=== PATIENT | female | born 1940 | race Caucasian/White ===

== ENCOUNTER 2016-12-24 17:34 | Inpatient (IN) | payer MEDICARE, OTHER ==
[~2016-12-24] VITALS: Ht 162.6 cm; Wt 124.7 kg
[2016-12-24 21:45] VITALS: BP 131/58
--- NOTE | 2016-12-24 22:00 | NUR ---
At around 2145, 76y/o female arrived accompanied by 2 political consultant via [facility]. No acute distress noted. Breathing even and unlabored with normal respirations. On O2 2L via nasal cannula. No complaints of pain/discomfort. Skin is intact. Vital signs stable, BP 131/58, HR 65, RR 20 Temp. 97.6, O2 sat 98%. Call light within reach. Kept clean, dry and comfortable. All needs attended. Will continue to monitor.
[2016-12-24] MEDS ORDERED: PRAM2.7P2 SQ (23:40)
[2016-12-24] MEDS ORDERED: ARIP10TA17 PO (23:40)
[2016-12-24] MEDS ORDERED: OMEP20TA5 PO (23:40)
[2016-12-24] MEDS ORDERED: POTA10CA43 PO (23:40)
[2016-12-24] MEDS ORDERED: SERT50TA PO (23:40)
[2016-12-24] MEDS ORDERED: CLOP75TA15 PO (23:40)
[2016-12-24] MEDS ORDERED: INSU100V28 SQ (23:40)
[2016-12-24] MEDS ORDERED: EMPA1TAB PO (23:40)
[2016-12-24] MEDS ORDERED: DORZ10DR8 OP (23:40)
[2016-12-24] MEDS ORDERED: BUME1TAB4 PO (23:40)
[2016-12-24] MEDS ORDERED: METO-306 PO (23:40)
[2016-12-24] MEDS ORDERED: BLOO-668 IN (23:40)
[2016-12-24] MEDS ORDERED: BRIM5DRO3 OP (23:40)
[2016-12-24] MEDS ORDERED: FLUT16SP NS (23:40)
[2016-12-24] MEDS ORDERED: ATOR40TA PO (23:40)
[2016-12-24] MEDS ORDERED: ACET-73 PO (23:40)
[2016-12-24] MEDS ORDERED: ISOS60TA4 PO (23:40)
[2016-12-25] MEDS ORDERED: Z GUARD REMEDY PASTE 57 GM TUBE TOP PRN
[2016-12-25] MEDS ORDERED: BRIMONIDINE-P 0.1% OPHTH DROP 5 ML DROPS OP SCH (03:00)
[2016-12-25] MEDS ORDERED: DORZOLAMIDE 2% OPHT DROP 10 ML BOTTLE OP SCH (03:00)
[2016-12-25] MEDS ORDERED: Medication Not On Formulary EA (Omeprazole 20 MG) PO SCH (03:00)
--- NOTE | 2016-12-25 03:00 | NUR ---
Patient asleep. Med recon done. No complaints of pain. No SOB. Call light within reach. All needs attended. Will continue to monitor.
[2016-12-25 06:23] LABS: BASOPHILS # (AUTO) 0.1 K/uL (0.0-8.0); BASOPHILS % (AUTO) 0.7 % (0.0-2.0); EOSINOPHILS # (AUTO) 0.4 K/uL (0.0-0.7); EOSINOPHILS % (AUTO) 3.9 % (0.0-7.0); HEMATOCRIT 37.9 % (37-47); HEMOGLOBIN 12.1 G/DL (12.0-16.0); LYMPHOCYTES # (AUTO) 1.5 K/UL (0.8-4.8); LYMPHOCYTES % (AUTO) 13.6 % (20.5-51.5); MEAN CORPUSCULAR HEMOGLOBIN 26.8 UUG (27.0-31.0); MEAN CORPUSCULAR HGB CONC 32 g/dL (32.0-37.0); MEAN CORPUSCULAR VOLUME 83.7 FL (81.0-99.0); MONOCYTES # (AUTO) 0.5 K/UL (0.1-1.30); MONOCYTES % (AUTO) 4.4 % (0.0-11.0); NEUTROPHILS # (AUTO) 8.7 K/UL (1.8-8.9); NEUTROPHILS % (AUTO) 77.4 % (38.5-71.5); PLATELET COUNT (AUTO) 343 K/UL (150-450); RED BLOOD CELL COUNT(AUTO) 4.53 MIL/UL (4.2-5.4); WHITE BLOOD COUNT (AUTO) 11.2 K/UL (4.0-11.2)
[2016-12-25] MEDS: BLOOD SUGAR DIAGNOSTIC 1 EACH STRIP VI SCH ×3 (06:31→21:29)
--- NOTE | 2016-12-25 06:46 | NUR ---
patient slept well throughout the shift. No acute distress noted. DVT pumps on. No SOB. MRSA swab done. Denies pain. Kept clean, dry and comfortable. Call light within reach. All needs attended.
[2016-12-25 07:06] LABS: CARBON DIOXIDE 37 mmol/L (21-32); CHLORIDE 99 mmol/L (98-107); CHOLESTEROL 187 mg/dL (<200); CREATININE 1.4 mg/dL (0.6-1.3); GLUCOSE 214 mg/dL (74-106); HDL CHOLESTEROL 40 mg/dL (40-60); MAGNESIUM 1.5 mg/dL (1.8-2.4); PHOSPHOROUS 3.4 mg/dL (2.5-4.9); POTASSIUM 4.6 mmol/L (3.5-5.1); TRIGLYCERIDES 329 MG/DL (30-150); UREA NITROGEN, BLOOD 39 mg/dL (7-18)
[2016-12-25 08:52] VITALS: BP 149/48
[2016-12-25] MEDS ORDERED: POTASSIUM CHLORIDE 10 MEQ CAPSULE.SA PO SCH (09:00)
[2016-12-25] MEDS ORDERED: LINAGLIPTIN PO SCH (09:00)
[2016-12-25] MEDS ORDERED: [UNRECOGNIZED DRUG - OTHER] PO SCH (09:00)
[2016-12-25] MEDS ORDERED: EMPAGLIFLOZIN PO SCH (09:00)
[2016-12-25] MEDS: METOPROLOL SUCCINATE XL 50 MG TAB.SR.24H PO SCH (09:00)
[2016-12-25] MEDS ORDERED: METOPROLOL SUCCINATE XL 100 MG TAB.SR.24H PO SCH (09:00)
[2016-12-25] MEDS: BUMETANIDE 1 MG TABLET PO SCH ×2 (09:00→10:33)
[2016-12-25] MEDS: PANTOPRAZOLE SODIUM 40 MG TABLET.DR PO SCH ×2 (10:33→17:12)
[2016-12-25] MEDS: ATORVASTATIN 40 MG TABLET PO SCH ×2 (10:33→21:30)
[2016-12-25] MEDS: FLUTICASONE PROP NASAL SPRAY 16 GM BOTTLE NS SCH (10:34)
[2016-12-25] MEDS: SERTRALINE HCL 50 MG TABLET PO SCH (10:36)
[2016-12-25] MEDS: ISOSORBIDE MONONITRATE 60 MG TAB.SR.24H PO SCH (10:36)
[2016-12-25] MEDS: POTASSIUM CHLORIDE 20 MEQ TAB.PRT.SR PO SCH (10:36)
[2016-12-25] MEDS: CLOPIDOGREL 75 MG TABLET PO SCH (10:36)
[2016-12-25] MEDS: INSULIN REGULAR, HUMAN 300 UNIT/3 ML VIAL SQ SCH ×2 (10:53→12:00)
[2016-12-25] MEDS: ARIPIPRAZOLE 10 MG TABLET PO SCH (12:18)
[2016-12-25] MEDS ORDERED: MAGNESIUM OXIDE 400 MG TABLET PO ONE (13:15)
--- NOTE | 2016-12-25 13:15 | NUR ---
DR. Montes was here on the unit and was niotified pt was NOT given coverage this am for the #189 IGlucose from shift superintendent. The pt was given her scheduled Insulin 20 units of Humulin at 11 am. Pt POCT Glucose was taken and it was 440 (monorail charger operator ) assisted. Pt was told not to eat: when RN went in to take Glucose, pt was done eating. Glucose was #443. Dr Montes was on the unit and wa notified; he reports to hold the schedules 20 units since 20 units was just given at 11 am. to re check at 1700 and give the scheduled 20 units and adhere to the sliding scale. egyptologist was discussing with the md: and will input the orders. Pt is not symptomatic. will continue to observe pt. Observation.
[2016-12-25] MEDS ORDERED: [UNRECOGNIZED DRUG - OTHER] SQ SCH (17:00)
[2016-12-25] MEDS ORDERED: DEXTROSE 50% 50 ML DISP.SYRIN IV PRN ×4 (17:00→17:45)
[2016-12-25] MEDS: BRIMONIDINE 0.2% OPHT DROP 10 ML BOTTLE EACHEYE SCH ×2 (17:10→17:17)
[2016-12-25] MEDS: DORZOLAMIDE 2% OPHT DROP 10 ML BOTTLE EACHEYE SCH (17:11)
[2016-12-25] MEDS: [UNRECOGNIZED DRUG - REMARK] SQ PRN (17:51)
[2016-12-25] MEDS: AZITHROMYCIN 250 MG TABLET PO SCH (18:56)
--- NOTE | 2016-12-25 19:50 | NUR ---
PT RECEIVED IN BED, AWAKE. A/OX4. ABLE TO MAKE NEEDS KNOWN. V/S STABLE. IN NO ACUTE DISTRESS. NO C/O PAIN AT THIS TIME. AWAITING IV START. ROCEPHIN HELD AT THIS TIME. PT ON 2LNC. NO C/O SOB. O2SAT 97%. SAFETY MEASURES IMPLEMENTED. BED ALARM SET. CALL LIGHT WITHIN REACH.
[2016-12-25 20:12] VITALS: BP 139/65
[2016-12-25] MEDS ORDERED: BLOOD SUGAR DIAGNOSTIC 1 EACH STRIP VI SCH ×2 (21:00)
[2016-12-25] MEDS: CEFTRIAXONE 1 G in IV DEXTROSE 5% 50 ML IV SCH (21:30)
[2016-12-25] MEDS: LOSARTAN POTASSIUM 50 MG TABLET PO SCH (21:30)
[2016-12-25] MEDS: INSULIN DETEMIR 300 UNIT/3 ML CARTRIDGE SQ SCH (21:34)
[2016-12-25] MEDS: [UNRECOGNIZED DRUG - REMARK] SQ PRN (21:37)
--- NOTE | 2016-12-26 06:10 | NUR ---
END OF SHIFT NOTES. PT SLEPT WELL THROUGHOUT SHIFT. IV ABX INFUSED. IV HEP-LOCKED, INTACT AND PATENT. ALL NEEDS ATTENDED. SAFETY MAINTAINED. CALL LIGHT WITHIN REACH.
[2016-12-26] MEDS: PANTOPRAZOLE SODIUM 40 MG TABLET.DR PO SCH ×2 (06:33→17:39)
[2016-12-26] MEDS: BLOOD SUGAR DIAGNOSTIC 1 EACH STRIP VI SCH ×4 (06:36→20:06)
[2016-12-26 06:49] LABS: CARBON DIOXIDE 39 mmol/L (21-32); CHLORIDE 98 mmol/L (98-107); CREATININE 1.3 mg/dL (0.6-1.3); POTASSIUM 4.2 mmol/L (3.5-5.1); UREA NITROGEN, BLOOD 34 mg/dL (7-18)
[2016-12-26 07:07] LABS: GLUCOSE 321 mg/dL (74-106)
[2016-12-26 07:20] VITALS: BP 163/81
--- NOTE | 2016-12-26 08:00 | NUR ---
PT RECEIVED IN BED, AWAKE. A/OX4. ABLE TO MAKE NEEDS KNOWN. V/S STABLE. IN NO ACUTE DISTRESS. NO C/O PAIN AT THIS TIME. PT ON 2LNC. NO C/O SOB. O2SAT 95%. SAFETY MEASURES IMPLEMENTED. BED ALARM SET. CALL LIGHT WITHIN REACH.
[2016-12-26] MEDS ORDERED: FUROSEMIDE 80 MG TABLET PO SCH ×2 (09:00→21:00)
[2016-12-26] MEDS: DORZOLAMIDE 2% OPHT DROP 10 ML BOTTLE EACHEYE SCH ×2 (09:14→17:40)
[2016-12-26] MEDS: BRIMONIDINE 0.2% OPHT DROP 10 ML BOTTLE EACHEYE SCH ×2 (09:14→17:40)
[2016-12-26] MEDS: FLUTICASONE PROP NASAL SPRAY 16 GM BOTTLE NS SCH (09:15)
[2016-12-26] MEDS: ARIPIPRAZOLE 10 MG TABLET PO SCH (09:15)
[2016-12-26] MEDS: ISOSORBIDE MONONITRATE 60 MG TAB.SR.24H PO SCH (09:17)
[2016-12-26] MEDS: POTASSIUM CHLORIDE 20 MEQ TAB.PRT.SR PO SCH (09:17)
[2016-12-26] MEDS: SERTRALINE HCL 50 MG TABLET PO SCH (09:18)
[2016-12-26] MEDS: CLOPIDOGREL 75 MG TABLET PO SCH (09:18)
[2016-12-26] MEDS: LOSARTAN POTASSIUM 50 MG TABLET PO SCH ×2 (09:20→21:21)
[2016-12-26] MEDS: METOPROLOL SUCCINATE XL 50 MG TAB.SR.24H PO SCH (09:21)
[2016-12-26] MEDS: INSULIN DETEMIR 300 UNIT/3 ML CARTRIDGE SQ SCH ×2 (09:24→21:16)
[2016-12-26] MEDS: [UNRECOGNIZED DRUG - REMARK] SQ PRN ×2 (13:00→17:46)
--- NOTE | 2016-12-26 13:00 | NUR ---
BLD GLU 441 AND REPEAT DONE PER PROTOCOL WITH BLD GLU WAS 408. 20UNIT OF HUMALOG GIVEN SUB/Q PER MD ORDER. DR GENE COOLEY CALLED AT TELE# [phone]. AND MESSAGE LEFT. WILL CONT TO MONITOR AT THIS TIME AND NO S/S OF ANY ADVERSE REACTION NOTED.
[2016-12-26] MEDS ORDERED: ACETAMINOPHEN 325 MG TABLET PO PRN (13:15)
[2016-12-26] MEDS: CEFTRIAXONE 1 G in IV DEXTROSE 5% 50 ML IV SCH (17:39)
[2016-12-26] MEDS: AZITHROMYCIN 250 MG TABLET PO SCH (17:39)
[2016-12-26] MEDS: INSULIN LISPRO 1000 UNITS/10 ML VIAL(HUMALOG) SQ SCH (17:48)
--- NOTE | 2016-12-26 18:00 | NUR ---
stable no s/s of any acute distress noted at this time.
--- NOTE | 2016-12-26 19:30 | NUR ---
PT ALERT AND ORIENTED IN BED. NO DISTRESS NOTED. IV INTACT. O2 2L NC IN PLACE. O2 SAT WNL. BS 241. INSULIN COVERAGE WILL BE GIVEN ORDERED. COMPLAINT WITH NURSING CARE. SAFETY MAINTAINED. CALL LIGHT WITHIN REACH. WILL CONTINUE TO MONITOR. Addendum: 12/27/16 at 0121 by CLEVELAND SAMUELS RN PT COMPLIANT WITH NURSING CARE.
[2016-12-26 20:00] VITALS: BP 157/74
[2016-12-26] MEDS ORDERED: INSULIN NPH SQ SCH (21:00)
[2016-12-26] MEDS ORDERED: INSULIN NPH 1,000 UNITS/10 ML VIAL SQ SCH (21:00)
[2016-12-26 21:05] VITALS: BP 136/46
[2016-12-26] MEDS: ATORVASTATIN 40 MG TABLET PO SCH (21:11)
[2016-12-26] MEDS: FUROSEMIDE 40 MG TABLET PO SCH (21:11)
[2016-12-26] MEDS: [UNRECOGNIZED DRUG - REMARK] SQ PRN (21:19)
--- NOTE | 2016-12-26 21:40 | NUR ---
DISCUSSED PATIENT DIABETIC INSULIN REGIME WITH DR LENORA MILLS. NOTIFIED HIM OF HS ACCUCHECK OF 241 TONIGHT. ALSO AWARE THAT PATIENT RECEIVED 50 UNITS OF LEVIMIR, 30 UNITS OF NPH, AND 4 UNITS OF HUMALOG BASED ON THIS ACCUCHECK ORDERED. DR STATED HE KNOWS IT SEEMS LIKE A LOT OF INSULIN COVERAGE, BUT AT HOME, PATIENT RECEIVES ABOUT 400 UNITS TOTAL OF INSULIN COVERAGE BETWEEN 4 MEDICINES SHE IS RECEIVING AND HAS NOT EXPERIENCED ANY HYPOGLYCEMIC EPISODES. HE ALSO ORDERED THAT WE DO NOT DO THE MIDNIGHT ACCUCHECKS PREVIOUSLY ORDERED. ORDER RECEIVED. WILL OBSERVE PATIENT CLOSELY FOR ANY SIGNS OF HYPOGLYCEMIA. HOURLY ROUNDS ARE BEING DONE. CALL LIGHT WITHIN REACH AAT. AND BED ALARM ON
--- NOTE | 2016-12-27 01:22 | NUR ---
PT FEELING SHAKEY AND DIZZY, STATES "SHE FEELS HER SUGAR IS LOW" CHECKED BS 79. GAVE ORANGE JUICE AND A SNACK. EXPLAINED THE SYMPTOMS OF HYPOGLYCEMIA AND IF SHE EXPERIENCES ANY TO CONTACT THE NURSING STAFF IMMEDIATELY. PT VERBALIZED UNDERSTANDING. WILL CONTINUE TO MONITOR.
[2016-12-27] MEDS: PANTOPRAZOLE SODIUM 40 MG TABLET.DR PO SCH ×2 (06:23→17:43)
[2016-12-27] MEDS: BLOOD SUGAR DIAGNOSTIC 1 EACH STRIP VI SCH ×4 (06:30→21:20)
--- NOTE | 2016-12-27 06:58 | NUR ---
PT RESTING IN BED. NO DISTRESS NOTED. BS 180. IV INTACT AND PATENT. O2 2L NC IN PLACE. SAFETY MAINTAINED. CALL LIGHT WITHIN REACH.
[2016-12-27 07:15] VITALS: BP 135/64
[2016-12-27] MEDS: ARIPIPRAZOLE 10 MG TABLET PO SCH (09:46)
[2016-12-27] MEDS: FLUTICASONE PROP NASAL SPRAY 16 GM BOTTLE NS SCH (09:46)
[2016-12-27] MEDS: DORZOLAMIDE 2% OPHT DROP 10 ML BOTTLE EACHEYE SCH ×2 (09:46→17:43)
[2016-12-27] MEDS: BRIMONIDINE 0.2% OPHT DROP 10 ML BOTTLE EACHEYE SCH ×2 (09:46→17:43)
[2016-12-27] MEDS: METOPROLOL SUCCINATE XL 50 MG TAB.SR.24H PO SCH (09:47)
[2016-12-27] MEDS: SERTRALINE HCL 50 MG TABLET PO SCH (09:47)
[2016-12-27] MEDS: FUROSEMIDE 40 MG TABLET PO SCH ×2 (09:47→21:22)
[2016-12-27] MEDS: ISOSORBIDE MONONITRATE 60 MG TAB.SR.24H PO SCH (09:47)
[2016-12-27] MEDS: AMLODIPINE 5 MG TABLET PO SCH (09:48)
[2016-12-27] MEDS: LOSARTAN POTASSIUM 50 MG TABLET PO SCH ×2 (09:48→21:22)
[2016-12-27] MEDS: POTASSIUM CHLORIDE 20 MEQ TAB.PRT.SR PO SCH (09:48)
[2016-12-27] MEDS: CLOPIDOGREL 75 MG TABLET PO SCH (09:48)
[2016-12-27] MEDS: INSULIN DETEMIR 300 UNIT/3 ML CARTRIDGE SQ SCH ×2 (09:59→21:59)
[2016-12-27] MEDS: INSULIN LISPRO 1000 UNITS/10 ML VIAL(HUMALOG) SQ SCH ×3 (10:00→18:30)
[2016-12-27] MEDS: [UNRECOGNIZED DRUG - REMARK] SQ PRN (11:53)
--- NOTE | 2016-12-27 14:00 | NUR ---
Called and left a message to pt's daughter regarding pt's diabetic home medication.
--- NOTE | 2016-12-27 17:19 | NUR ---
Spoke with Dr. Cedeño on the telephone. Full report given. New orders received and carried out.
--- NOTE | 2016-12-27 18:59 | NUR ---
Javon chávez for [address] BS 154. Dr[address] Cedeño called to clarify insulin orders. Awaiting return call.
--- NOTE | 2016-12-27 19:45 | NUR ---
DR MILLS CALLED BACK AT 1945,[facility] NURSE ENDORSED TO FOLLOW UP CONCERNING AFTER MEALS INSULIN 20 UNITS HUMALOG. BS [address] MILLS WOULD LIKE 20 UNITS OF HUMALOG GIVEN IF PT EATS MEAL. IF PT DOES NOT EAT MEAL HOLD DOSE. NOTIFIED PT ATE DINNER, OK WITH NOT GIVING 20 UNITS OF HUMALOG AT THIS TIME. SPOKE WITH DR WILL CHECK BS AT 2100 AND FOLLOW UP WITH 2100 ORDERS.
[2016-12-27 20:15] VITALS: BP 134/49
[2016-12-27] MEDS: ATORVASTATIN 40 MG TABLET PO SCH (21:22)
--- NOTE | 2016-12-27 21:45 | NUR ---
PT COMPLIANT WITH LONG ACTING INSULINS BUT REFUSING SHORT ACTING AT THIS TIME. EDUCATED PT ON THE DIFFERENCE BETWEEN LONG ACTING AND SHORT ACTING INSULIN AND THE SYMPTOMS OF HYPERGLYCEMIA AND HYPOGLYCEMIA. PT VERBALIZED UNDERSTANDING. WILL CONTINUE TO MONITOR.
[2016-12-27] MEDS: INSULIN NPH 1,000 UNITS/10 ML VIAL SQ SCH (21:57)
[2016-12-27] MEDS: INSULIN LISPRO 1000 UNITS/10 ML VIAL(HUMALOG) SQ PRN (22:00)
[2016-12-28] MEDS: PANTOPRAZOLE SODIUM 40 MG TABLET.DR PO SCH ×2 (06:13→17:03)
[2016-12-28] MEDS: BLOOD SUGAR DIAGNOSTIC 1 EACH STRIP VI SCH ×4 (07:01→20:18)
--- NOTE | 2016-12-28 07:05 | NUR ---
PT RESTING IN BED. NO DISTRESS NOTED. BS 202. O2 2L NC IN PLACE, O2 SAT WNL. IV INTACT. CLEAN AND DRY. SLEPT WELL THROUGHOUT THE NIGHT. SAFETY MAINTAINED. CALL LIGHT WITHIN REACH.
[2016-12-28 07:30] VITALS: BP 133/73
[2016-12-28] MEDS: FLUTICASONE PROP NASAL SPRAY 16 GM BOTTLE NS SCH (08:10)
[2016-12-28] MEDS: FUROSEMIDE 40 MG TABLET PO SCH ×2 (08:11→20:32)
[2016-12-28] MEDS: SERTRALINE HCL 50 MG TABLET PO SCH (08:11)
[2016-12-28] MEDS: CLOPIDOGREL 75 MG TABLET PO SCH (08:11)
[2016-12-28] MEDS: POTASSIUM CHLORIDE 20 MEQ TAB.PRT.SR PO SCH (08:11)
[2016-12-28] MEDS: ARIPIPRAZOLE 10 MG TABLET PO SCH (08:12)
[2016-12-28] MEDS: LOSARTAN POTASSIUM 50 MG TABLET PO SCH ×2 (08:12→20:32)
[2016-12-28] MEDS: METOPROLOL SUCCINATE XL 50 MG TAB.SR.24H PO SCH (08:13)
[2016-12-28] MEDS: AMLODIPINE 5 MG TABLET PO SCH (08:13)
[2016-12-28] MEDS: DORZOLAMIDE 2% OPHT DROP 10 ML BOTTLE EACHEYE SCH ×2 (08:13→17:03)
[2016-12-28] MEDS: BRIMONIDINE 0.2% OPHT DROP 10 ML BOTTLE EACHEYE SCH ×2 (08:14→17:03)
[2016-12-28] MEDS: ISOSORBIDE MONONITRATE 60 MG TAB.SR.24H PO SCH (08:19)
[2016-12-28] MEDS: INSULIN DETEMIR 300 UNIT/3 ML CARTRIDGE SQ SCH ×2 (08:26→20:35)
[2016-12-28] MEDS: INSULIN LISPRO 1000 UNITS/10 ML VIAL(HUMALOG) SQ SCH (08:27)
[2016-12-28] MEDS: INSULIN LISPRO 1000 UNITS/10 ML VIAL(HUMALOG) SQ PRN ×3 (08:28→16:54)
[2016-12-28 20:01] VITALS: BP 122/45
[2016-12-28] MEDS: ATORVASTATIN 40 MG TABLET PO SCH (20:32)
[2016-12-28] MEDS: ACETAMINOPHEN ES 500 MG TABLET PO PRN (20:33)
[2016-12-28] MEDS: INSULIN NPH 1,000 UNITS/10 ML VIAL SQ SCH (20:37)
--- NOTE | 2016-12-28 22:00 | NUR ---
Assisted to the bathroom PRN, patient tolerated w/o difficulty. Night snacks provided.
--- NOTE | 2016-12-29 06:00 | NUR ---
Slept well today, current blood sugar 210 mg/dl. No acute resp. distress.
[2016-12-29] MEDS: PANTOPRAZOLE SODIUM 40 MG TABLET.DR PO SCH ×2 (06:33→17:38)
[2016-12-29] MEDS: BLOOD SUGAR DIAGNOSTIC 1 EACH STRIP VI SCH ×4 (06:33→21:42)
--- NOTE | 2016-12-29 07:45 | NUR ---
Pt. A/A/O,eating breakfast,no s/s of distress,denies pain.
[2016-12-29 08:00] VITALS: BP 152/59
[2016-12-29] MEDS: ISOSORBIDE MONONITRATE 60 MG TAB.SR.24H PO SCH (09:24)
[2016-12-29] MEDS: POTASSIUM CHLORIDE 20 MEQ TAB.PRT.SR PO SCH (09:24)
[2016-12-29] MEDS: FUROSEMIDE 40 MG TABLET PO SCH ×2 (09:24→21:41)
[2016-12-29] MEDS: LOSARTAN POTASSIUM 50 MG TABLET PO SCH ×2 (09:24→21:00)
[2016-12-29] MEDS: SERTRALINE HCL 50 MG TABLET PO SCH (09:25)
[2016-12-29] MEDS: CLOPIDOGREL 75 MG TABLET PO SCH (09:25)
[2016-12-29] MEDS: AMLODIPINE 5 MG TABLET PO SCH (09:25)
[2016-12-29] MEDS: DORZOLAMIDE 2% OPHT DROP 10 ML BOTTLE EACHEYE SCH ×2 (09:28→17:37)
[2016-12-29] MEDS: INSULIN DETEMIR 300 UNIT/3 ML CARTRIDGE SQ SCH ×2 (09:28→21:59)
[2016-12-29] MEDS: BRIMONIDINE 0.2% OPHT DROP 10 ML BOTTLE EACHEYE SCH ×2 (09:29→17:38)
[2016-12-29] MEDS: INSULIN LISPRO 1000 UNITS/10 ML VIAL(HUMALOG) SQ SCH (09:30)
[2016-12-29] MEDS: METOPROLOL SUCCINATE XL 50 MG TAB.SR.24H PO SCH (09:31)
[2016-12-29] MEDS: FLUTICASONE PROP NASAL SPRAY 16 GM BOTTLE NS SCH (09:31)
[2016-12-29] MEDS: ARIPIPRAZOLE 10 MG TABLET PO SCH (09:31)
[2016-12-29] MEDS: INSULIN LISPRO 1000 UNITS/10 ML VIAL(HUMALOG) SQ PRN ×2 (12:15→22:01)
--- NOTE | 2016-12-29 14:40 | NUR ---
Rehab Team Conference 12/29/16
--- NOTE | 2016-12-29 18:00 | NUR ---
Pt.eating dinner,good appetite,watching TV,denies pain @ time.family at bedside.
[2016-12-29 20:00] VITALS: BP 98/43
[2016-12-29] MEDS: ATORVASTATIN 40 MG TABLET PO SCH (21:41)
[2016-12-29] MEDS: INSULIN NPH 1,000 UNITS/10 ML VIAL SQ SCH (22:00)
[2016-12-30] MEDS: PANTOPRAZOLE SODIUM 40 MG TABLET.DR PO SCH ×2 (07:04→17:01)
[2016-12-30] MEDS: BLOOD SUGAR DIAGNOSTIC 1 EACH STRIP VI SCH ×4 (07:08→20:43)
[2016-12-30 08:38] VITALS: BP 120/91
[2016-12-30] MEDS: INSULIN LISPRO 1000 UNITS/10 ML VIAL(HUMALOG) SQ SCH (08:39)
[2016-12-30] MEDS: DORZOLAMIDE 2% OPHT DROP 10 ML BOTTLE EACHEYE SCH ×2 (08:40→17:10)
[2016-12-30] MEDS: FLUTICASONE PROP NASAL SPRAY 16 GM BOTTLE NS SCH (08:41)
[2016-12-30] MEDS: ARIPIPRAZOLE 10 MG TABLET PO SCH (08:43)
[2016-12-30] MEDS: ISOSORBIDE MONONITRATE 60 MG TAB.SR.24H PO SCH (08:47)
[2016-12-30] MEDS: LOSARTAN POTASSIUM 50 MG TABLET PO SCH ×2 (08:47→20:37)
[2016-12-30] MEDS: POTASSIUM CHLORIDE 20 MEQ TAB.PRT.SR PO SCH (08:48)
[2016-12-30] MEDS: SERTRALINE HCL 50 MG TABLET PO SCH (08:48)
[2016-12-30] MEDS: FUROSEMIDE 40 MG TABLET PO SCH ×2 (08:48→20:37)
[2016-12-30] MEDS: CLOPIDOGREL 75 MG TABLET PO SCH (08:49)
[2016-12-30] MEDS: METOPROLOL SUCCINATE XL 50 MG TAB.SR.24H PO SCH (08:49)
[2016-12-30] MEDS: AMLODIPINE 5 MG TABLET PO SCH (08:50)
[2016-12-30] MEDS: BRIMONIDINE 0.2% OPHT DROP 10 ML BOTTLE EACHEYE SCH ×2 (08:52→17:07)
[2016-12-30] MEDS: INSULIN DETEMIR 300 UNIT/3 ML CARTRIDGE SQ SCH ×2 (08:54→20:58)
[2016-12-30] MEDS: INSULIN LISPRO 1000 UNITS/10 ML VIAL(HUMALOG) SQ PRN ×3 (12:27→20:52)
--- NOTE | 2016-12-30 19:00 | NUR ---
RECEIVED PATIENT IN BED, ALERT ORIENTED, NO S/S OF HYPO/HYPERGLYCEMIA NOTED, NO SOB NO CHEST PAIN NOTED, ON OXYGEN 2L NC PER MIN, OXYGEN SAT WNL, CONTINENT OF BOWEL AND BLADDER, ASSISTED WITH TOILETING, IV HEPLOCK ON R FA 22#, NO OTHER COMPLAIN OF PAIN, CALL LIGHT WITHIN REACH.
[2016-12-30 20:00] VITALS: BP 108/42
[2016-12-30] MEDS: ATORVASTATIN 40 MG TABLET PO SCH (20:37)
[2016-12-30] MEDS: INSULIN NPH 1,000 UNITS/10 ML VIAL SQ SCH (20:49)
[2016-12-31] MEDS: PANTOPRAZOLE SODIUM 40 MG TABLET.DR PO SCH ×2 (06:10→17:19)
[2016-12-31] MEDS: BLOOD SUGAR DIAGNOSTIC 1 EACH STRIP VI SCH ×4 (06:24→20:24)
--- NOTE | 2016-12-31 06:51 | NUR ---
PATIENT SLEPT MOST OF THE NIGHT, NO SOB NO CHEST, ON OXYGEN 2LPM FOR SOB, OXYGEN SAT WNL, ASSISTED WITH TOILETING, IV HEPLOCK ON R FA 22, INTACT. CALL LIGHT WITHIN REACH.
[2016-12-31 08:00] VITALS: BP 128/59
[2016-12-31] MEDS: ISOSORBIDE MONONITRATE 60 MG TAB.SR.24H PO SCH (09:00)
[2016-12-31] MEDS: LOSARTAN POTASSIUM 50 MG TABLET PO SCH ×2 (09:00→21:00)
[2016-12-31] MEDS: SPIRONOLACTONE 25 MG TABLET PO SCH (09:00)
[2016-12-31] MEDS: METOPROLOL SUCCINATE XL 50 MG TAB.SR.24H PO SCH (09:00)
[2016-12-31] MEDS: INSULIN DETEMIR 300 UNIT/3 ML CARTRIDGE SQ SCH ×2 (09:32→20:35)
[2016-12-31] MEDS: SERTRALINE HCL 50 MG TABLET PO SCH (09:35)
[2016-12-31] MEDS: POTASSIUM CHLORIDE 20 MEQ TAB.PRT.SR PO SCH (09:36)
[2016-12-31] MEDS: AMLODIPINE 5 MG TABLET PO SCH (09:36)
[2016-12-31] MEDS: FUROSEMIDE 40 MG TABLET PO SCH ×2 (09:36→20:19)
[2016-12-31] MEDS: ARIPIPRAZOLE 10 MG TABLET PO SCH (09:37)
[2016-12-31] MEDS: FLUTICASONE PROP NASAL SPRAY 16 GM BOTTLE NS SCH (09:38)
[2016-12-31] MEDS: BRIMONIDINE 0.2% OPHT DROP 10 ML BOTTLE EACHEYE SCH ×2 (09:38→17:19)
[2016-12-31] MEDS: DORZOLAMIDE 2% OPHT DROP 10 ML BOTTLE EACHEYE SCH ×2 (09:38→17:19)
[2016-12-31] MEDS: CLOPIDOGREL 75 MG TABLET PO SCH (09:45)
[2016-12-31] MEDS: INSULIN LISPRO 1000 UNITS/10 ML VIAL(HUMALOG) SQ SCH (13:01)
--- NOTE | 2016-12-31 16:29 | NUR ---
patient a/o times three in bed sleeping most of am without c/o pain or dis comfort, .Oral intake qs and remains on fluid restriction, abdomen large and soft no s/s of respiratory distress o2 2l nc, accu checks covered with humalog insulin as ordered. continue to monitor for respiratory distress
[2016-12-31] MEDS: INSULIN LISPRO 1000 UNITS/10 ML VIAL(HUMALOG) SQ PRN (17:56)
--- NOTE | 2016-12-31 19:26 | NUR ---
RECEIVED IN BED, ALERT ORIENTED, NO SOB NO CHEST PAIN NOTED, OXYGEN SAT WNL, CONTINENT OF BOWEL AND BLADDER, NO COMPLAIN OF ANY PAIN, NO S/S OF HYPO/HYPERGYLCEMIA NOTED, KEPT CLEAN AND DRY, CALL LIGHT WITHIN REACH.
[2016-12-31] MEDS: ATORVASTATIN 40 MG TABLET PO SCH (20:19)
[2016-12-31 20:22] VITALS: BP 98/48
[2016-12-31] MEDS: INSULIN NPH 1,000 UNITS/10 ML VIAL SQ SCH (20:36)
[2017-01-01] MEDS: PANTOPRAZOLE SODIUM 40 MG TABLET.DR PO SCH ×2 (06:07→18:24)
[2017-01-01] MEDS: BLOOD SUGAR DIAGNOSTIC 1 EACH STRIP VI SCH ×5 (06:12→21:58)
--- NOTE | 2017-01-01 06:59 | NUR ---
PATIENT SLEPT MOST OF THE NIGHT, NO SOB NO CHEST PAIN, USES BEDSIDE COMMODE FOR BLADDER ELIMINATION, L KNEE DRESSING INTACT, KEPT COMFORTABLE, CALL LIGHT LATONIA CINTRON. Addendum: 01/01/17 at 0704 by DAKOTAH CHOWDHURY RN PATIENT SLEPT MOST OF THE NIGHT, NO SOB NO CHEST PAIN, USES BEDSIDE COMMODE FOR BLADDER ELIMINATION, L KNEE DRESSING INTACT, KEPT COMFORTABLE, CALL LIGHT WITHIN REACH, CHARTING IN ERROR.
--- NOTE | 2017-01-01 07:04 | NUR ---
PATIENT SLEPT MOST OF THE NIGHT, NO SOB NO CHEST PAIN NOTED, CONT ON OXYGEN 2LPM FOR ASSIST, OXYGEN SAT WNL, NO COMPLAIN OF PAIN, USES BATHROOM FOR BLADDER ELIMINATION, NO S/S OF HYPO/HYPERGLYCEMIA NOTED, CALL LIGHT WITHIN REACH.
[2017-01-01] MEDS: INSULIN LISPRO 1000 UNITS/10 ML VIAL(HUMALOG) SQ SCH (08:48)
[2017-01-01] MEDS: INSULIN DETEMIR 300 UNIT/3 ML CARTRIDGE SQ SCH ×2 (08:49→21:53)
[2017-01-01] MEDS: FLUTICASONE PROP NASAL SPRAY 16 GM BOTTLE NS SCH (08:51)
[2017-01-01] MEDS: METOPROLOL SUCCINATE XL 50 MG TAB.SR.24H PO SCH (08:53)
[2017-01-01] MEDS: CLOPIDOGREL 75 MG TABLET PO SCH (08:54)
[2017-01-01] MEDS: AMLODIPINE 5 MG TABLET PO SCH (08:54)
[2017-01-01] MEDS: SERTRALINE HCL 50 MG TABLET PO SCH (08:54)
[2017-01-01] MEDS: LOSARTAN POTASSIUM 50 MG TABLET PO SCH ×2 (08:55→21:46)
[2017-01-01] MEDS: SPIRONOLACTONE 25 MG TABLET PO SCH (08:55)
[2017-01-01] MEDS: FUROSEMIDE 40 MG TABLET PO SCH ×2 (08:55→21:46)
[2017-01-01] MEDS: ISOSORBIDE MONONITRATE 60 MG TAB.SR.24H PO SCH (08:56)
[2017-01-01] MEDS: ARIPIPRAZOLE 10 MG TABLET PO SCH (08:56)
[2017-01-01] MEDS: POTASSIUM CHLORIDE 20 MEQ TAB.PRT.SR PO SCH (08:56)
[2017-01-01 09:25] VITALS: BP 132/56
[2017-01-01] MEDS: BRIMONIDINE 0.2% OPHT DROP 10 ML BOTTLE EACHEYE SCH ×2 (09:32→18:24)
[2017-01-01] MEDS: DORZOLAMIDE 2% OPHT DROP 10 ML BOTTLE EACHEYE SCH ×2 (09:32→18:24)
[2017-01-01] MEDS: INSULIN LISPRO 1000 UNITS/10 ML VIAL(HUMALOG) SQ PRN ×2 (12:38→21:56)
--- NOTE | 2017-01-01 19:15 | NUR ---
PATIENT ALERT AWAKE, ON CONT OXYGEN 2LITER PER MIN NC, NO SOB NO CHEST PAIN NOTED, SKIN WARM AND DRY, NO S/S OF HYPO/HYPERGLYCEMIA NOTED, ASSISTED WITH TOILETING, KEPT SKIN CLEAN AND DRY, NO OTHER COMPLAIN OF PAIN, CALL LIGHT WITHIN REACH.
[2017-01-01 20:54] VITALS: BP 138/48
[2017-01-01] MEDS: ATORVASTATIN 40 MG TABLET PO SCH (21:46)
[2017-01-01] MEDS: INSULIN NPH 1,000 UNITS/10 ML VIAL SQ SCH (21:54)
--- NOTE | 2017-01-02 05:37 | NUR ---
PATIENT SLEPT GOOD, NO SOB NO CHEST PAIN NOTED, ON CONT OXYGEN 2LPM NC, OXYGEN SAT WNL, NO COMPLAIN OF PAIN, NO S/S OF HYPO/HYPERGLYCEMIA NOTED, CONTINENT OF BOWEL AND BLADDER, ASSISTED WITH TOILETING, CALL LIGHT WITHIN REACH.
[2017-01-02] MEDS: BLOOD SUGAR DIAGNOSTIC 1 EACH STRIP VI SCH ×4 (06:03→21:14)
[2017-01-02] MEDS: PANTOPRAZOLE SODIUM 40 MG TABLET.DR PO SCH ×2 (06:03→17:17)
[2017-01-02 07:15] VITALS: BP 158/57
--- NOTE | 2017-01-02 07:20 | NUR ---
Pt resting in bed.Denies pain,discomfort.No SOB noted.Will continue to monitor.
[2017-01-02] MEDS: DORZOLAMIDE 2% OPHT DROP 10 ML BOTTLE EACHEYE SCH ×2 (08:32→17:16)
[2017-01-02] MEDS: FLUTICASONE PROP NASAL SPRAY 16 GM BOTTLE NS SCH (08:32)
[2017-01-02] MEDS: METOPROLOL SUCCINATE XL 50 MG TAB.SR.24H PO SCH (08:33)
[2017-01-02] MEDS: SPIRONOLACTONE 25 MG TABLET PO SCH (08:33)
[2017-01-02] MEDS: BRIMONIDINE 0.2% OPHT DROP 10 ML BOTTLE EACHEYE SCH ×2 (08:33→17:17)
[2017-01-02] MEDS: LOSARTAN POTASSIUM 50 MG TABLET PO SCH ×2 (08:34→21:00)
[2017-01-02] MEDS: ISOSORBIDE MONONITRATE 60 MG TAB.SR.24H PO SCH (08:34)
[2017-01-02] MEDS: POTASSIUM CHLORIDE 20 MEQ TAB.PRT.SR PO SCH (08:34)
[2017-01-02] MEDS: FUROSEMIDE 40 MG TABLET PO SCH ×2 (08:34→21:14)
[2017-01-02] MEDS: SERTRALINE HCL 50 MG TABLET PO SCH (08:34)
[2017-01-02] MEDS: AMLODIPINE 5 MG TABLET PO SCH (08:35)
[2017-01-02] MEDS: CLOPIDOGREL 75 MG TABLET PO SCH (08:35)
[2017-01-02] MEDS: INSULIN DETEMIR 300 UNIT/3 ML CARTRIDGE SQ SCH ×2 (08:42→21:21)
[2017-01-02] MEDS: INSULIN LISPRO 1000 UNITS/10 ML VIAL(HUMALOG) SQ SCH (08:44)
[2017-01-02] MEDS: ARIPIPRAZOLE 10 MG TABLET PO SCH (08:47)
[2017-01-02] MEDS: INSULIN LISPRO 1000 UNITS/10 ML VIAL(HUMALOG) SQ PRN ×2 (12:12→21:20)
[2017-01-02 20:00] VITALS: BP 100/56
[2017-01-02] MEDS: ATORVASTATIN 40 MG TABLET PO SCH (21:14)
[2017-01-02] MEDS: INSULIN NPH 1,000 UNITS/10 ML VIAL SQ SCH (21:22)
[2017-01-03] MEDS: PANTOPRAZOLE SODIUM 40 MG TABLET.DR PO SCH ×2 (06:43→16:49)
[2017-01-03] MEDS: BLOOD SUGAR DIAGNOSTIC 1 EACH STRIP VI SCH ×4 (06:46→21:48)
[2017-01-03 07:15] VITALS: BP 119/49
--- NOTE | 2017-01-03 07:30 | NUR ---
Pt received sitting at edge of bed, a/o x4, No distress noted, on R/A denies any SOB, IV Heplock to Right hand, Intact and patent, No s/s of infection, no infiltration noted. Call light within reach. Plan of care discussed.
[2017-01-03] MEDS: INSULIN LISPRO 1000 UNITS/10 ML VIAL(HUMALOG) SQ SCH ×2 (08:10→08:30)
[2017-01-03] MEDS: INSULIN DETEMIR 300 UNIT/3 ML CARTRIDGE SQ SCH ×2 (08:12→21:45)
[2017-01-03] MEDS: FUROSEMIDE 40 MG TABLET PO SCH ×2 (08:13→21:38)
[2017-01-03] MEDS: POTASSIUM CHLORIDE 20 MEQ TAB.PRT.SR PO SCH (08:13)
[2017-01-03] MEDS: CLOPIDOGREL 75 MG TABLET PO SCH (08:14)
[2017-01-03] MEDS: LOSARTAN POTASSIUM 50 MG TABLET PO SCH ×2 (08:14→21:39)
[2017-01-03] MEDS: SERTRALINE HCL 50 MG TABLET PO SCH (08:14)
[2017-01-03] MEDS: SPIRONOLACTONE 25 MG TABLET PO SCH (08:14)
[2017-01-03] MEDS: METOPROLOL SUCCINATE XL 50 MG TAB.SR.24H PO SCH (08:14)
[2017-01-03] MEDS: ARIPIPRAZOLE 10 MG TABLET PO SCH (08:15)
[2017-01-03] MEDS: FLUTICASONE PROP NASAL SPRAY 16 GM BOTTLE NS SCH (08:15)
[2017-01-03] MEDS: BRIMONIDINE 0.2% OPHT DROP 10 ML BOTTLE EACHEYE SCH ×2 (08:16→16:48)
[2017-01-03] MEDS: DORZOLAMIDE 2% OPHT DROP 10 ML BOTTLE EACHEYE SCH ×2 (08:16→16:48)
--- NOTE | 2017-01-03 08:30 | NUR ---
Blood sugar 124, 20 units of Humolog insulin not given, pt refused. Message left to Dr. Cedeño.
[2017-01-03] MEDS: ISOSORBIDE MONONITRATE 60 MG TAB.SR.24H PO SCH (10:00)
[2017-01-03] MEDS: AMLODIPINE 5 MG TABLET PO SCH (10:00)
[2017-01-03] MEDS: ACETAMINOPHEN ES 500 MG TABLET PO PRN (10:00)
[2017-01-03] MEDS: INSULIN LISPRO 1000 UNITS/10 ML VIAL(HUMALOG) SQ PRN ×3 (11:49→21:47)
--- NOTE | 2017-01-03 11:54 | NUR ---
Blood sugar 285, 18 units of humalog insulin given per sliding scale.
[2017-01-03 15:58] LABS: CARBON DIOXIDE 29 mmol/L (21-32); CHLORIDE 100 mmol/L (98-107); CREATININE 2.1 mg/dL (0.6-1.3); GLUCOSE 243 mg/dL (74-106); POTASSIUM 4.4 mmol/L (3.5-5.1); UREA NITROGEN, BLOOD 51 mg/dL (7-18)
--- NOTE | 2017-01-03 18:50 | NUR ---
Pt remains in bed, no acute distress noted. Dr. Cedeño made aware of Lab results with abnormal elevated bun/cr. received no new orders. Call light kept within reach. bed kept low/locked position.
[2017-01-03 20:13] VITALS: BP 146/71
[2017-01-03] MEDS: ATORVASTATIN 40 MG TABLET PO SCH (21:38)
[2017-01-03] MEDS: INSULIN NPH 1,000 UNITS/10 ML VIAL SQ SCH (21:42)
[2017-01-04] MEDS: PANTOPRAZOLE SODIUM 40 MG TABLET.DR PO SCH ×2 (06:48→16:48)
[2017-01-04] MEDS: INSULIN LISPRO 1000 UNITS/10 ML VIAL(HUMALOG) SQ PRN ×3 (06:55→21:31)
[2017-01-04 08:36] VITALS: BP 114/49
[2017-01-04] MEDS: CLOPIDOGREL 75 MG TABLET PO SCH (08:41)
[2017-01-04] MEDS: AMLODIPINE 5 MG TABLET PO SCH (08:41)
[2017-01-04] MEDS: LOSARTAN POTASSIUM 50 MG TABLET PO SCH ×2 (08:42→21:20)
[2017-01-04] MEDS: POTASSIUM CHLORIDE 20 MEQ TAB.PRT.SR PO SCH (08:42)
[2017-01-04] MEDS: SPIRONOLACTONE 25 MG TABLET PO SCH (08:42)
[2017-01-04] MEDS: SERTRALINE HCL 50 MG TABLET PO SCH (08:42)
[2017-01-04] MEDS: FUROSEMIDE 40 MG TABLET PO SCH ×2 (08:42→21:20)
[2017-01-04] MEDS: METOPROLOL SUCCINATE XL 50 MG TAB.SR.24H PO SCH (08:42)
[2017-01-04] MEDS: ISOSORBIDE MONONITRATE 60 MG TAB.SR.24H PO SCH (08:42)
[2017-01-04] MEDS: BLOOD SUGAR DIAGNOSTIC 1 EACH STRIP VI SCH ×4 (09:52→21:42)
[2017-01-04] MEDS: INSULIN DETEMIR 300 UNIT/3 ML CARTRIDGE SQ SCH ×2 (09:53→23:49)
[2017-01-04] MEDS: FLUTICASONE PROP NASAL SPRAY 16 GM BOTTLE NS SCH (09:54)
[2017-01-04] MEDS: INSULIN LISPRO 1000 UNITS/10 ML VIAL(HUMALOG) SQ SCH (09:54)
[2017-01-04] MEDS: DORZOLAMIDE 2% OPHT DROP 10 ML BOTTLE EACHEYE SCH ×2 (09:54→16:49)
[2017-01-04] MEDS: BRIMONIDINE 0.2% OPHT DROP 10 ML BOTTLE EACHEYE SCH ×2 (09:54→16:49)
[2017-01-04] MEDS: ARIPIPRAZOLE 10 MG TABLET PO SCH (09:55)
--- NOTE | 2017-01-04 17:40 | NUR ---
Patient attended therapy today. Blood sugar ran high for breakfast and lunch, but was controlled for dinner. Patient denied any pain this shift. Ate 100% of meals and had a shower with the help of the LPN CMA today.
[2017-01-04 20:14] VITALS: BP 132/55
[2017-01-04] MEDS: ATORVASTATIN 40 MG TABLET PO SCH (21:19)
[2017-01-04] MEDS: INSULIN NPH 1,000 UNITS/10 ML VIAL SQ SCH (21:39)
[2017-01-05] MEDS: PANTOPRAZOLE SODIUM 40 MG TABLET.DR PO SCH ×2 (06:30→17:59)
[2017-01-05] MEDS: BLOOD SUGAR DIAGNOSTIC 1 EACH STRIP VI SCH ×4 (06:32→21:19)
--- NOTE | 2017-01-05 07:40 | NUR ---
ondition remain unchange.
[2017-01-05 08:16] VITALS: BP 120/53
[2017-01-05] MEDS: DORZOLAMIDE 2% OPHT DROP 10 ML BOTTLE EACHEYE SCH ×2 (08:25→18:01)
[2017-01-05] MEDS: FLUTICASONE PROP NASAL SPRAY 16 GM BOTTLE NS SCH (08:25)
[2017-01-05] MEDS: BRIMONIDINE 0.2% OPHT DROP 10 ML BOTTLE EACHEYE SCH ×2 (08:25→18:01)
[2017-01-05] MEDS: INSULIN LISPRO 1000 UNITS/10 ML VIAL(HUMALOG) SQ SCH (08:27)
[2017-01-05] MEDS: INSULIN DETEMIR 300 UNIT/3 ML CARTRIDGE SQ SCH ×2 (08:28→21:28)
[2017-01-05] MEDS: ARIPIPRAZOLE 10 MG TABLET PO SCH (08:29)
[2017-01-05] MEDS: CLOPIDOGREL 75 MG TABLET PO SCH (08:30)
[2017-01-05] MEDS: SERTRALINE HCL 50 MG TABLET PO SCH (08:30)
[2017-01-05] MEDS: SPIRONOLACTONE 25 MG TABLET PO SCH (08:30)
[2017-01-05] MEDS: AMLODIPINE 5 MG TABLET PO SCH (08:30)
[2017-01-05] MEDS: LOSARTAN POTASSIUM 50 MG TABLET PO SCH ×2 (08:31→21:19)
[2017-01-05] MEDS: FUROSEMIDE 40 MG TABLET PO SCH ×2 (08:31→21:19)
[2017-01-05] MEDS: ISOSORBIDE MONONITRATE 60 MG TAB.SR.24H PO SCH (08:31)
[2017-01-05] MEDS: POTASSIUM CHLORIDE 20 MEQ TAB.PRT.SR PO SCH (08:31)
[2017-01-05] MEDS: METOPROLOL SUCCINATE XL 50 MG TAB.SR.24H PO SCH (08:32)
[2017-01-05] MEDS: INSULIN LISPRO 1000 UNITS/10 ML VIAL(HUMALOG) SQ PRN ×3 (12:06→21:25)
--- NOTE | 2017-01-05 14:04 | NUR ---
Interdisciplinary Team Summary
--- NOTE | 2017-01-05 18:46 | NUR ---
Patient tolerated therapy well today. Insulin given AC as per MD ordered sliding scale.
--- NOTE | 2017-01-05 20:00 | NUR ---
RECEIVED PT AWAKE, WATCHING TV, DENIES PAIN. HEP LOCK INTACT & PATENT ON RFA. ON O2 @ 2LNC. NOT IN ANY DISTRESS.
[2017-01-05 20:03] VITALS: BP 129/47
[2017-01-05] MEDS: ATORVASTATIN 40 MG TABLET PO SCH (21:19)
[2017-01-05] MEDS: INSULIN NPH 1,000 UNITS/10 ML VIAL SQ SCH (21:27)
--- NOTE | 2017-01-05 21:45 | NUR ---
PT HAD HS SNACK. UP TO BATH RM WITHOUT ASSISTANCE.
--- NOTE | 2017-01-06 | NUR ---
SLEEPING INTERMITENTLY, UP TO THE BATH RM BY HERSELF. NOT IN ANY DISTRESS.
--- NOTE | 2017-01-06 06:10 | NUR ---
PT. REMAINS ASLEEP. NOT IN ANY DISTRESS.
[2017-01-06] MEDS: PANTOPRAZOLE SODIUM 40 MG TABLET.DR PO SCH ×2 (06:26→16:42)
[2017-01-06] MEDS: BLOOD SUGAR DIAGNOSTIC 1 EACH STRIP VI SCH ×4 (06:49→21:12)
--- NOTE | 2017-01-06 07:35 | NUR ---
RECEIVED REPORT FROM SECURITY DELIVERY SPECIALIST NURSE. PATIENT NOTED SITTING ON BED AWAITING BREAKFAST, NO DISTRESS NOTED, DENIES PAIN AT THIS TIME, CALL LIGHT IN REACH, BED LOW AND LOCKED INTO POSITION, O2 VIA NASAL CANNULA NOTED.
[2017-01-06 07:48] VITALS: BP 111/63
[2017-01-06] MEDS: INSULIN LISPRO 1000 UNITS/10 ML VIAL(HUMALOG) SQ SCH (08:14)
[2017-01-06] MEDS: INSULIN DETEMIR 300 UNIT/3 ML CARTRIDGE SQ SCH ×2 (08:16→21:19)
[2017-01-06] MEDS: BRIMONIDINE 0.2% OPHT DROP 10 ML BOTTLE EACHEYE SCH ×2 (08:19→16:42)
[2017-01-06] MEDS: DORZOLAMIDE 2% OPHT DROP 10 ML BOTTLE EACHEYE SCH ×2 (08:19→16:42)
[2017-01-06] MEDS: SPIRONOLACTONE 25 MG TABLET PO SCH (08:20)
[2017-01-06] MEDS: SERTRALINE HCL 50 MG TABLET PO SCH (08:20)
[2017-01-06] MEDS: ARIPIPRAZOLE 10 MG TABLET PO SCH (08:20)
[2017-01-06] MEDS: ISOSORBIDE MONONITRATE 60 MG TAB.SR.24H PO SCH (08:23)
[2017-01-06] MEDS: LOSARTAN POTASSIUM 50 MG TABLET PO SCH ×2 (08:24→21:08)
[2017-01-06] MEDS: CLOPIDOGREL 75 MG TABLET PO SCH (08:24)
[2017-01-06] MEDS: FUROSEMIDE 40 MG TABLET PO SCH ×2 (08:24→21:07)
[2017-01-06] MEDS: AMLODIPINE 5 MG TABLET PO SCH (08:24)
[2017-01-06] MEDS: POTASSIUM CHLORIDE 20 MEQ TAB.PRT.SR PO SCH (08:25)
[2017-01-06] MEDS: METOPROLOL SUCCINATE XL 50 MG TAB.SR.24H PO SCH (08:25)
[2017-01-06] MEDS: FLUTICASONE PROP NASAL SPRAY 16 GM BOTTLE NS SCH (08:34)
[2017-01-06] MEDS: INSULIN LISPRO 1000 UNITS/10 ML VIAL(HUMALOG) SQ PRN ×2 (12:20→21:16)
--- NOTE | 2017-01-06 18:26 | NUR ---
PATIENT NOTED LAYING IN BED WATCHING TV, HAS DENIED PAIN THIS SHIFT, NO NEW SKIN ISSUES, NO SIGNS OF DISTRESS, 2V LITERS OF O2 98%, NO EDEMA NOTED, BED LOCKED IN LOWEST POSITION, CALL LIGHT IN REACH
[2017-01-06 20:00] VITALS: BP 136/47
--- NOTE | 2017-01-06 20:00 | NUR ---
RECEIVED PT AWAKE, ALERT & ORIENTED X4. ON O2 @ 2LNC W/ O2 SAT OF96%. HEP LOCK INTACT ON RFA. NOT IN ANY DISTRESS.
[2017-01-06] MEDS: ATORVASTATIN 40 MG TABLET PO SCH (21:07)
[2017-01-06] MEDS: INSULIN NPH 1,000 UNITS/10 ML VIAL SQ SCH (21:17)
--- NOTE | 2017-01-07 06:26 | NUR ---
PT. IS AWAKE, UP TOP BATH RM, VOIDING WELL. NOT IN ANY DISTRESS.
[2017-01-07] MEDS: BLOOD SUGAR DIAGNOSTIC 1 EACH STRIP VI SCH ×2 (06:49→11:57)
[2017-01-07] MEDS: PANTOPRAZOLE SODIUM 40 MG TABLET.DR PO SCH (06:49)
[2017-01-07 08:04] VITALS: BP 110/52
[2017-01-07] MEDS: POTASSIUM CHLORIDE 20 MEQ TAB.PRT.SR PO SCH (09:49)
[2017-01-07] MEDS: BRIMONIDINE 0.2% OPHT DROP 10 ML BOTTLE EACHEYE SCH (09:49)
[2017-01-07] MEDS: FUROSEMIDE 40 MG TABLET PO SCH (09:49)
[2017-01-07] MEDS: SPIRONOLACTONE 25 MG TABLET PO SCH (09:49)
[2017-01-07] MEDS: SERTRALINE HCL 50 MG TABLET PO SCH (09:49)
[2017-01-07] MEDS: FLUTICASONE PROP NASAL SPRAY 16 GM BOTTLE NS SCH (09:49)
[2017-01-07] MEDS: CLOPIDOGREL 75 MG TABLET PO SCH (09:49)
[2017-01-07] MEDS: DORZOLAMIDE 2% OPHT DROP 10 ML BOTTLE EACHEYE SCH (09:50)
[2017-01-07] MEDS: INSULIN LISPRO 1000 UNITS/10 ML VIAL(HUMALOG) SQ SCH (09:52)
[2017-01-07] MEDS: INSULIN DETEMIR 300 UNIT/3 ML CARTRIDGE SQ SCH (09:54)
[2017-01-07] MEDS: ARIPIPRAZOLE 10 MG TABLET PO SCH (09:58)
[2017-01-07] MEDS: METOPROLOL SUCCINATE XL 50 MG TAB.SR.24H PO SCH (10:02)
[2017-01-07] MEDS: LOSARTAN POTASSIUM 50 MG TABLET PO SCH (10:02)
[2017-01-07] MEDS: AMLODIPINE 5 MG TABLET PO SCH (10:03)
[2017-01-07 10:14] VITALS: BP 145/47
[2017-01-07] MEDS: ISOSORBIDE MONONITRATE 60 MG TAB.SR.24H PO SCH (10:14)
[2017-01-07] MEDS: INSULIN LISPRO 1000 UNITS/10 ML VIAL(HUMALOG) SQ PRN (12:05)
--- NOTE | 2017-01-07 15:59 | NUR ---
pt left at 1540. pt left without complications. vital signs stable. no signs of shortness pf breath. family member given discharge instructions about stay and along with exitcare in topics such as hyperglycemia hypoglycemia, relaxation techniques and smoking cessation. family member translated and given instructions to pt. family member also instructed about following up with Home health. family verbalizes understanding. pt went home with walker. pt assisted to the car with help of brother.
== END 2017-01-07 15:40 | disposition home health service (06) | DRG 291 ==
PROVIDERS: ADMIT Physical Medicine & Rehabilitation Pain Medicine; ATTEND Physical Medicine & Rehabilitation Pain Medicine
DX: I13.0 Hypertensive heart and chronic kidney disease with heart failure and stage 1 through stage 4 chronic kidney disease, or unspecified chronic kidney disease (principal); J18.9 Pneumonia, unspecified organism; E11.22 Type 2 diabetes mellitus with diabetic chronic kidney disease; E11.65 Type 2 diabetes mellitus with hyperglycemia; N18.3 Chronic kidney disease, stage 3 (moderate); Z68.42 Body mass index [BMI] 45.0-49.9, adult; E66.01 Morbid (severe) obesity due to excess calories; F32.9 Major depressive disorder, single episode, unspecified; F41.9 Anxiety disorder, unspecified; G47.33 Obstructive sleep apnea (adult) (pediatric); I25.10 Atherosclerotic heart disease of native coronary artery without angina pectoris; I50.9 Heart failure, unspecified; Z79.4 Long term (current) use of insulin; R53.81 Other malaise; Z82.49 Family history of ischemic heart disease and other diseases of the circulatory system; Z98.61 Coronary angioplasty status; Z81.1 Family history of alcohol abuse and dependence
CPT/HCPCS: 36415; 83735; 84100; 85025; 92526; 92610; 97110; 97112; 97116; 97530; 97535; A4663; J0696; J1815; J3535; J7060; Q0144

== ENCOUNTER 2017-03-10 14:57 | Inpatient (IN) | payer MEDICARE, OTHER ==
[~2017-03-10] VITALS: Ht 157.5 cm; Wt 135.2 kg
[~2017-03-10 14:57] MED LIST: ACET-73 PO; ARIP10TA17 PO; ATOR40TA PO; BLOO-668 IN; BRIM5DRO3 OP; BUME1TAB4 PO; CLOP75TA15 PO; DORZ10DR8 OP; EMPA1TAB PO; FLUT16SP NS; INSU100V28 SQ; ISOS60TA4 PO; METO-306 PO; OMEP20TA5 PO; POTA10CA43 PO; PRAM2.7P2 SQ; SERT50TA PO
[2017-03-10 15:13] VITALS: BP 112/45
[2017-03-10] MEDS ORDERED: INSU100C SUBCUT (16:44)
[2017-03-10] MEDS ORDERED: PARO10TA86 PO (16:44)
[2017-03-10] MEDS ORDERED: DORZ10DR8 EACHEYE (16:44)
[2017-03-10] MEDS ORDERED: BUME2TAB3 PO (16:44)
[2017-03-10] MEDS ORDERED: ACET-2154 PO (16:44)
[2017-03-10] MEDS ORDERED: TRAZ-144 PO (16:44)
[2017-03-10] MEDS ORDERED: BENA10TA2 PO (16:44)
[2017-03-10] MEDS ORDERED: SPIR25TA4 PO (16:44)
[2017-03-10] MEDS ORDERED: INSU100I19 SQ (16:44)
[2017-03-10] MEDS ORDERED: METO-304 PO (16:44)
[2017-03-10] MEDS ORDERED: IPRA0.2S6 NEB ×2 (16:44)
[2017-03-10] MEDS ORDERED: BRIM10DR6 EACHEYE (16:44)
[2017-03-10] MEDS ORDERED: ALBU1.25 IH ×2 (16:44)
[2017-03-10] MEDS ORDERED: PANT40TA4 PO (16:44)
[2017-03-10] MEDS ORDERED: INSULIN REGULAR, HUMAN 300 UNIT/3 ML VIAL SQ PRN (16:45)
[2017-03-10] MEDS ORDERED: INSULIN REGULAR, HUMAN 300 UNITS/3 ML VIAL SQ PRN (16:45)
[2017-03-10] MEDS ORDERED: DEXTROSE 50% 50 ML DISP.SYRIN IV PRN ×2 (16:45→18:15)
[2017-03-10] MEDS ORDERED: Z GUARD REMEDY PASTE 57 GM TUBE TOP PRN (16:45)
[2017-03-10] MEDS ORDERED: BLOOD SUGAR DIAGNOSTIC 1 EACH STRIP VI SCH (16:45)
[2017-03-10] MEDS ORDERED: DORZOLAMIDE 2% OPHT DROP 10 ML BOTTLE EACHEYE SCH (18:30)
[2017-03-10] MEDS ORDERED: ALBUTEROL SULFATE 1.25 MG/3 ML NEBU IH SCH (18:30)
[2017-03-10] MEDS ORDERED: IPRATROPIUM BROMIDE 0.5 MG/2.5 ML NEBU NEB SCH (18:30)
[2017-03-10] MEDS ORDERED: ACETAMINOPHEN 325 MG TABLET PO PRN (18:30)
[2017-03-10 20:09] VITALS: BP 121/56
[2017-03-10] MEDS: ALBUTEROL SULFATE 1.25 MG/3 ML NEBU IH SCH (21:17)
[2017-03-10] MEDS: IPRATROPIUM BROMIDE 0.5 MG/2.5 ML NEBU NEB SCH (21:17)
[2017-03-10] MEDS: ATORVASTATIN 40 MG TABLET PO SCH (21:33)
[2017-03-10] MEDS: TRAZODONE 50 MG TABLET PO SCH (21:33)
[2017-03-10] MEDS: INSULIN DETEMIR 300 UNIT/3 ML CARTRIDGE SQ SCH (21:42)
[2017-03-10] MEDS: INSULIN NPH 1,000 UNITS/10 ML VIAL SQ SCH (21:45)
[2017-03-10] MEDS: INSULIN ASPART 300 UNIT/3 ML CARTRIDGE SQ PRN (21:48)
[2017-03-10] MEDS: BLOOD SUGAR DIAGNOSTIC 1 EACH STRIP VI SCH (21:54)
[2017-03-10] MEDS: INSULIN ASPART 300 UNIT/3 ML CARTRIDGE SQ SCH (21:59)
[2017-03-11] MEDS: PANTOPRAZOLE SODIUM 40 MG TABLET.DR PO SCH (06:56)
[2017-03-11] MEDS: BLOOD SUGAR DIAGNOSTIC 1 EACH STRIP VI SCH ×4 (07:00→20:52)
[2017-03-11 07:23] LABS: CARBON DIOXIDE 33 mmol/L (21-32); CHLORIDE 101 mmol/L (98-107); CHOLESTEROL 145 mg/dL (<200); CREATININE 1.3 mg/dL (0.6-1.3); GLUCOSE 245 mg/dL (74-106); HDL CHOLESTEROL 31 mg/dL (40-60); MAGNESIUM 1.6 mg/dL (1.8-2.4); PHOSPHOROUS 4.2 mg/dL (2.5-4.9); POTASSIUM 4.1 mmol/L (3.5-5.1); TRIGLYCERIDES 246 MG/DL (30-150); UREA NITROGEN, BLOOD 36 mg/dL (7-18)
[2017-03-11] MEDS ORDERED: INSULIN LISPRO U SUBCUT SCH (07:30)
[2017-03-11] MEDS: INSULIN LISPRO 1000 UNITS/10 ML VIAL(HUMALOG) SQ SCH (07:49)
[2017-03-11] MEDS: INSULIN DETEMIR 300 UNIT/3 ML CARTRIDGE SQ SCH ×2 (07:52→21:05)
[2017-03-11] MEDS: INSULIN NPH 1,000 UNITS/10 ML VIAL SQ SCH ×2 (07:56→21:14)
[2017-03-11 07:59] LABS: BASOPHILS % (AUTO) 0.5 % (0.0-2.0); HEMOGLOBIN 10.7 g/dL (10.9-14.3); LYMPHOCYTES # (AUTO) 1.1 K/uL (20.0-40.0); LYMPHOCYTES % (AUTO) 14.2 % (20.5-51.5); MONOCYTES # (AUTO) 0.4 K/uL (2.0-10.0); NEUTROPHILS # (AUTO) 5.7 K/uL (1.8-8.9)
[2017-03-11 08:02] VITALS: BP 153/62
[2017-03-11] MEDS: ISOSORBIDE MONONITRATE 60 MG TAB.SR.24H PO SCH (08:06)
[2017-03-11] MEDS: PAROXETINE HCL 10 MG TABLET PO SCH (08:06)
[2017-03-11] MEDS: CLOPIDOGREL 75 MG TABLET PO SCH (08:07)
[2017-03-11] MEDS: SPIRONOLACTONE 25 MG TABLET PO SCH ×2 (08:07→17:29)
[2017-03-11] MEDS: METOPROLOL SUCCINATE XL 50 MG TAB.SR.24H PO SCH (08:08)
[2017-03-11] MEDS: BENAZEPRIL HCL 10 MG TABLET PO SCH (08:08)
[2017-03-11 08:09] LABS: EOSINOPHILS # (AUTO) 0.3 K/uL (0.0-0.7); EOSINOPHILS % (AUTO) 4.6 % (0.0-7.0); MEAN CORPUSCULAR HEMOGLOBIN 29.2 uug (24.7-32.8); MEAN CORPUSCULAR HGB CONC 34 g/dL (32.3-35.6); MEAN CORPUSCULAR VOLUME 87.2 fL (75.5-95.3); MONOCYTES % (AUTO) 4.9 % (0.0-11.0); NEUTROPHILS % (AUTO) 75.8 % (38.5-71.5); PLATELET COUNT (AUTO) 312 K/uL (179-408); RED BLOOD CELL COUNT(AUTO) 3.67 MIL/uL (3.63-4.92)
[2017-03-11 08:11] LABS: WHITE BLOOD COUNT (AUTO) 7.5 K/uL (3.8-11.8)
[2017-03-11] MEDS: FLUTICASONE PROP NASAL SPRAY 16 GM BOTTLE NS SCH (08:11)
[2017-03-11] MEDS: BUMETANIDE 1 MG TABLET PO SCH (08:11)
[2017-03-11] MEDS: BRIMONIDINE 0.2% OPHT DROP 10 ML BOTTLE EACHEYE SCH ×2 (08:11→17:30)
[2017-03-11] MEDS: ALBUTEROL SULFATE 1.25 MG/3 ML NEBU IH SCH ×4 (08:46→19:30)
[2017-03-11] MEDS: IPRATROPIUM BROMIDE 0.5 MG/2.5 ML NEBU NEB SCH ×4 (08:46→19:30)
[2017-03-11] MEDS ORDERED: Medication Not On Formulary EA (Bumetanide (Bumex) 2 MG) PO SCH (09:00)
[2017-03-11] MEDS: ARIPIPRAZOLE 10 MG TABLET PO SCH (09:00)
[2017-03-11] MEDS: PATIENT MAY USE OWN MED- MD OK EACHEYE SCH ×2 (09:45→17:32)
[2017-03-11] MEDS: INSULIN ASPART 300 UNIT/3 ML CARTRIDGE SQ PRN ×2 (12:16→17:37)
[2017-03-11] MEDS ORDERED: MAGNESIUM OXIDE 400 MG TABLET PO ONE (16:45)
[2017-03-11 20:34] VITALS: BP 138/64
[2017-03-11] MEDS: TRAZODONE 50 MG TABLET PO SCH (20:52)
[2017-03-11] MEDS: ATORVASTATIN 40 MG TABLET PO SCH (20:52)
[2017-03-11] MEDS: INSULIN ASPART 300 UNIT/3 ML CARTRIDGE SQ SCH (21:01)
[2017-03-12] MEDS: PANTOPRAZOLE SODIUM 40 MG TABLET.DR PO SCH (06:31)
[2017-03-12] MEDS: BLOOD SUGAR DIAGNOSTIC 1 EACH STRIP VI SCH ×4 (06:34→20:47)
[2017-03-12] MEDS: IPRATROPIUM BROMIDE 0.5 MG/2.5 ML NEBU NEB SCH ×4 (06:52→18:51)
[2017-03-12] MEDS: ALBUTEROL SULFATE 1.25 MG/3 ML NEBU IH SCH ×4 (06:52→18:51)
[2017-03-12] MEDS: BUMETANIDE 1 MG TABLET PO SCH (08:02)
[2017-03-12] MEDS: PAROXETINE HCL 10 MG TABLET PO SCH (08:02)
[2017-03-12] MEDS: BENAZEPRIL HCL 10 MG TABLET PO SCH (08:02)
[2017-03-12] MEDS: SPIRONOLACTONE 25 MG TABLET PO SCH ×2 (08:02→16:21)
[2017-03-12] MEDS: ISOSORBIDE MONONITRATE 60 MG TAB.SR.24H PO SCH (08:02)
[2017-03-12] MEDS: METOPROLOL SUCCINATE XL 50 MG TAB.SR.24H PO SCH (08:02)
[2017-03-12] MEDS: PATIENT MAY USE OWN MED- MD OK EACHEYE SCH ×2 (08:03→16:20)
[2017-03-12] MEDS: BRIMONIDINE 0.2% OPHT DROP 10 ML BOTTLE EACHEYE SCH ×2 (08:08→16:21)
[2017-03-12] MEDS: INSULIN NPH 1,000 UNITS/10 ML VIAL SQ SCH ×2 (08:08→20:58)
[2017-03-12] MEDS: FLUTICASONE PROP NASAL SPRAY 16 GM BOTTLE NS SCH (08:08)
[2017-03-12] MEDS: CLOPIDOGREL 75 MG TABLET PO SCH (08:10)
[2017-03-12] MEDS: INSULIN DETEMIR 300 UNIT/3 ML CARTRIDGE SQ SCH ×2 (08:10→20:56)
[2017-03-12] MEDS: INSULIN LISPRO 1000 UNITS/10 ML VIAL(HUMALOG) SQ SCH (08:12)
[2017-03-12] MEDS: INSULIN ASPART 300 UNIT/3 ML CARTRIDGE SQ PRN ×3 (08:14→16:26)
[2017-03-12 08:20] VITALS: BP 125/50
[2017-03-12] MEDS: ARIPIPRAZOLE 10 MG TABLET PO SCH (09:40)
[2017-03-12 19:40] VITALS: BP 142/48
[2017-03-12] MEDS: TRAZODONE 50 MG TABLET PO SCH (20:47)
[2017-03-12] MEDS: ATORVASTATIN 40 MG TABLET PO SCH (20:47)
[2017-03-12] MEDS: INSULIN ASPART 300 UNIT/3 ML CARTRIDGE SQ SCH (20:59)
[2017-03-13] MEDS: PANTOPRAZOLE SODIUM 40 MG TABLET.DR PO SCH (06:44)
[2017-03-13] MEDS: BLOOD SUGAR DIAGNOSTIC 1 EACH STRIP VI SCH ×4 (06:47→20:56)
[2017-03-13] MEDS: IPRATROPIUM BROMIDE 0.5 MG/2.5 ML NEBU NEB SCH ×4 (06:56→18:51)
[2017-03-13] MEDS: ALBUTEROL SULFATE 1.25 MG/3 ML NEBU IH SCH ×4 (06:56→18:51)
[2017-03-13 08:06] VITALS: BP 138/50
[2017-03-13] MEDS: CLOPIDOGREL 75 MG TABLET PO SCH (08:23)
[2017-03-13] MEDS: SPIRONOLACTONE 25 MG TABLET PO SCH ×2 (08:23→17:00)
[2017-03-13] MEDS: METOPROLOL SUCCINATE XL 50 MG TAB.SR.24H PO SCH (08:24)
[2017-03-13] MEDS: ISOSORBIDE MONONITRATE 60 MG TAB.SR.24H PO SCH (08:24)
[2017-03-13] MEDS: BUMETANIDE 1 MG TABLET PO SCH (08:25)
[2017-03-13] MEDS: PAROXETINE HCL 10 MG TABLET PO SCH (08:25)
[2017-03-13] MEDS: ARIPIPRAZOLE 10 MG TABLET PO SCH (08:26)
[2017-03-13] MEDS: PATIENT MAY USE OWN MED- MD OK EACHEYE SCH ×2 (08:27→17:00)
[2017-03-13] MEDS: INSULIN LISPRO 1000 UNITS/10 ML VIAL(HUMALOG) SQ SCH (08:28)
[2017-03-13] MEDS: FLUTICASONE PROP NASAL SPRAY 16 GM BOTTLE NS SCH (08:28)
[2017-03-13] MEDS: BRIMONIDINE 0.2% OPHT DROP 10 ML BOTTLE EACHEYE SCH ×2 (08:30→17:00)
[2017-03-13] MEDS: INSULIN DETEMIR 300 UNIT/3 ML CARTRIDGE SQ SCH ×2 (08:30→20:53)
[2017-03-13] MEDS: INSULIN NPH 1,000 UNITS/10 ML VIAL SQ SCH ×2 (08:32→20:53)
[2017-03-13] MEDS: BENAZEPRIL HCL 10 MG TABLET PO SCH (08:33)
[2017-03-13] MEDS: INSULIN ASPART 300 UNIT/3 ML CARTRIDGE SQ PRN ×2 (11:35→16:43)
[2017-03-13 19:45] VITALS: BP 150/59
[2017-03-13] MEDS: ATORVASTATIN 40 MG TABLET PO SCH (20:51)
[2017-03-13] MEDS: TRAZODONE 50 MG TABLET PO SCH (20:51)
[2017-03-13] MEDS: INSULIN ASPART 300 UNIT/3 ML CARTRIDGE SQ SCH (20:54)
[2017-03-14] MEDS: PANTOPRAZOLE SODIUM 40 MG TABLET.DR PO SCH (06:47)
[2017-03-14] MEDS: BLOOD SUGAR DIAGNOSTIC 1 EACH STRIP VI SCH ×4 (06:55→20:41)
[2017-03-14] MEDS: IPRATROPIUM BROMIDE 0.5 MG/2.5 ML NEBU NEB SCH ×4 (07:12→19:03)
[2017-03-14] MEDS: ALBUTEROL SULFATE 1.25 MG/3 ML NEBU IH SCH ×4 (07:12→19:03)
[2017-03-14 07:46] VITALS: BP 135/55
[2017-03-14] MEDS: INSULIN LISPRO 1000 UNITS/10 ML VIAL(HUMALOG) SQ SCH (07:52)
[2017-03-14] MEDS: INSULIN NPH 1,000 UNITS/10 ML VIAL SQ SCH ×2 (09:24→20:39)
[2017-03-14] MEDS: INSULIN DETEMIR 300 UNIT/3 ML CARTRIDGE SQ SCH ×2 (09:25→20:37)
[2017-03-14] MEDS: BRIMONIDINE 0.2% OPHT DROP 10 ML BOTTLE EACHEYE SCH ×2 (09:26→16:59)
[2017-03-14] MEDS: PATIENT MAY USE OWN MED- MD OK EACHEYE SCH ×2 (09:26→17:00)
[2017-03-14] MEDS: FLUTICASONE PROP NASAL SPRAY 16 GM BOTTLE NS SCH (09:27)
[2017-03-14] MEDS: ARIPIPRAZOLE 10 MG TABLET PO SCH (09:27)
[2017-03-14] MEDS: BUMETANIDE 1 MG TABLET PO SCH (09:28)
[2017-03-14] MEDS: PAROXETINE HCL 10 MG TABLET PO SCH (09:28)
[2017-03-14] MEDS: METOPROLOL SUCCINATE XL 50 MG TAB.SR.24H PO SCH (09:28)
[2017-03-14] MEDS: SPIRONOLACTONE 25 MG TABLET PO SCH ×2 (09:28→17:00)
[2017-03-14] MEDS: CLOPIDOGREL 75 MG TABLET PO SCH (09:28)
[2017-03-14] MEDS: BENAZEPRIL HCL 10 MG TABLET PO SCH (09:28)
[2017-03-14] MEDS: ISOSORBIDE MONONITRATE 60 MG TAB.SR.24H PO SCH (09:29)
[2017-03-14] MEDS: INSULIN ASPART 300 UNIT/3 ML CARTRIDGE SQ PRN (16:58)
[2017-03-14 20:00] VITALS: BP 125/50
[2017-03-14] MEDS: TRAZODONE 50 MG TABLET PO SCH (20:37)
[2017-03-14] MEDS: ATORVASTATIN 40 MG TABLET PO SCH (20:37)
[2017-03-14] MEDS: INSULIN ASPART 300 UNIT/3 ML CARTRIDGE SQ SCH (20:41)
[2017-03-15] MEDS: PANTOPRAZOLE SODIUM 40 MG TABLET.DR PO SCH (06:24)
[2017-03-15] MEDS: IPRATROPIUM BROMIDE 0.5 MG/2.5 ML NEBU NEB SCH ×4 (07:19→20:25)
[2017-03-15] MEDS: ALBUTEROL SULFATE 1.25 MG/3 ML NEBU IH SCH ×4 (07:20→20:25)
[2017-03-15 07:44] VITALS: BP 141/66
[2017-03-15] MEDS: BLOOD SUGAR DIAGNOSTIC 1 EACH STRIP VI SCH ×4 (07:55→20:26)
[2017-03-15] MEDS: INSULIN LISPRO 1000 UNITS/10 ML VIAL(HUMALOG) SQ SCH (07:56)
[2017-03-15] MEDS: BRIMONIDINE 0.2% OPHT DROP 10 ML BOTTLE EACHEYE SCH ×2 (09:30→16:43)
[2017-03-15] MEDS: PATIENT MAY USE OWN MED- MD OK EACHEYE SCH ×2 (09:31→16:43)
[2017-03-15] MEDS: ARIPIPRAZOLE 10 MG TABLET PO SCH (09:33)
[2017-03-15] MEDS: ISOSORBIDE MONONITRATE 60 MG TAB.SR.24H PO SCH (09:33)
[2017-03-15] MEDS: METOPROLOL SUCCINATE XL 50 MG TAB.SR.24H PO SCH (09:34)
[2017-03-15] MEDS: CLOPIDOGREL 75 MG TABLET PO SCH (09:34)
[2017-03-15] MEDS: SPIRONOLACTONE 25 MG TABLET PO SCH ×2 (09:34→16:43)
[2017-03-15] MEDS: BENAZEPRIL HCL 10 MG TABLET PO SCH (09:34)
[2017-03-15] MEDS: BUMETANIDE 1 MG TABLET PO SCH (09:34)
[2017-03-15] MEDS: PAROXETINE HCL 10 MG TABLET PO SCH (09:34)
[2017-03-15] MEDS: INSULIN DETEMIR 300 UNIT/3 ML CARTRIDGE SQ SCH ×2 (09:36→20:25)
[2017-03-15] MEDS: INSULIN NPH 1,000 UNITS/10 ML VIAL SQ SCH ×2 (09:38→20:26)
[2017-03-15] MEDS: FLUTICASONE PROP NASAL SPRAY 16 GM BOTTLE NS SCH (09:40)
[2017-03-15] MEDS: INSULIN ASPART 300 UNIT/3 ML CARTRIDGE SQ PRN (12:13)
[2017-03-15 20:05] VITALS: BP 127/54
[2017-03-15] MEDS: TRAZODONE 50 MG TABLET PO SCH (20:19)
[2017-03-15] MEDS: ATORVASTATIN 40 MG TABLET PO SCH (20:19)
[2017-03-15] MEDS: INSULIN ASPART 300 UNIT/3 ML CARTRIDGE SQ SCH (21:00)
[2017-03-16] MEDS: PANTOPRAZOLE SODIUM 40 MG TABLET.DR PO SCH (06:33)
[2017-03-16] MEDS: BLOOD SUGAR DIAGNOSTIC 1 EACH STRIP VI SCH ×4 (06:40→20:22)
[2017-03-16] MEDS: IPRATROPIUM BROMIDE 0.5 MG/2.5 ML NEBU NEB SCH ×4 (07:00→20:13)
[2017-03-16] MEDS: ALBUTEROL SULFATE 1.25 MG/3 ML NEBU IH SCH ×4 (07:00→20:14)
[2017-03-16 08:33] VITALS: BP 112/41
[2017-03-16] MEDS: INSULIN LISPRO 1000 UNITS/10 ML VIAL(HUMALOG) SQ SCH (09:35)
[2017-03-16] MEDS: ISOSORBIDE MONONITRATE 60 MG TAB.SR.24H PO SCH (09:40)
[2017-03-16] MEDS: SPIRONOLACTONE 25 MG TABLET PO SCH ×2 (09:40→17:28)
[2017-03-16] MEDS: BUMETANIDE 1 MG TABLET PO SCH (09:40)
[2017-03-16] MEDS: CLOPIDOGREL 75 MG TABLET PO SCH (09:41)
[2017-03-16] MEDS: BENAZEPRIL HCL 10 MG TABLET PO SCH (09:41)
[2017-03-16] MEDS: PAROXETINE HCL 10 MG TABLET PO SCH (09:41)
[2017-03-16] MEDS: ARIPIPRAZOLE 10 MG TABLET PO SCH (09:41)
[2017-03-16] MEDS: METOPROLOL SUCCINATE XL 50 MG TAB.SR.24H PO SCH (09:42)
[2017-03-16] MEDS: INSULIN DETEMIR 300 UNIT/3 ML CARTRIDGE SQ SCH ×2 (09:44→20:31)
[2017-03-16] MEDS: BRIMONIDINE 0.2% OPHT DROP 10 ML BOTTLE EACHEYE SCH ×2 (10:03→17:27)
[2017-03-16] MEDS: FLUTICASONE PROP NASAL SPRAY 16 GM BOTTLE NS SCH (10:04)
[2017-03-16] MEDS: PATIENT MAY USE OWN MED- MD OK EACHEYE SCH ×2 (11:29→17:27)
[2017-03-16] MEDS: INSULIN NPH 1,000 UNITS/10 ML VIAL SQ SCH ×2 (11:33→20:27)
[2017-03-16] MEDS: INSULIN ASPART 300 UNIT/3 ML CARTRIDGE SQ PRN ×2 (12:43→17:25)
[2017-03-16 19:40] VITALS: BP 129/65
[2017-03-16] MEDS: TRAZODONE 50 MG TABLET PO SCH (20:03)
[2017-03-16] MEDS: ATORVASTATIN 40 MG TABLET PO SCH (20:03)
[2017-03-16] MEDS: INSULIN ASPART 300 UNIT/3 ML CARTRIDGE SQ SCH (20:30)
[2017-03-17] MEDS: PANTOPRAZOLE SODIUM 40 MG TABLET.DR PO SCH (06:34)
[2017-03-17] MEDS: BLOOD SUGAR DIAGNOSTIC 1 EACH STRIP VI SCH ×4 (06:39→21:40)
[2017-03-17] MEDS: IPRATROPIUM BROMIDE 0.5 MG/2.5 ML NEBU NEB SCH ×4 (07:00→18:56)
[2017-03-17] MEDS: ALBUTEROL SULFATE 1.25 MG/3 ML NEBU IH SCH ×4 (07:00→18:56)
[2017-03-17] MEDS: INSULIN LISPRO 1000 UNITS/10 ML VIAL(HUMALOG) SQ SCH (07:44)
[2017-03-17 08:00] VITALS: BP 132/58
[2017-03-17] MEDS: BRIMONIDINE 0.2% OPHT DROP 10 ML BOTTLE EACHEYE SCH ×2 (09:33→17:04)
[2017-03-17] MEDS: PATIENT MAY USE OWN MED- MD OK EACHEYE SCH ×2 (09:33→17:03)
[2017-03-17] MEDS: FLUTICASONE PROP NASAL SPRAY 16 GM BOTTLE NS SCH (09:33)
[2017-03-17] MEDS: ARIPIPRAZOLE 10 MG TABLET PO SCH (09:34)
[2017-03-17] MEDS: BUMETANIDE 1 MG TABLET PO SCH (09:34)
[2017-03-17] MEDS: CLOPIDOGREL 75 MG TABLET PO SCH (09:34)
[2017-03-17] MEDS: PAROXETINE HCL 10 MG TABLET PO SCH (09:35)
[2017-03-17] MEDS: ISOSORBIDE MONONITRATE 60 MG TAB.SR.24H PO SCH (09:35)
[2017-03-17] MEDS: METOPROLOL SUCCINATE XL 50 MG TAB.SR.24H PO SCH (09:35)
[2017-03-17] MEDS: BENAZEPRIL HCL 10 MG TABLET PO SCH (09:36)
[2017-03-17] MEDS: SPIRONOLACTONE 25 MG TABLET PO SCH ×2 (09:36→17:00)
[2017-03-17] MEDS: INSULIN DETEMIR 300 UNIT/3 ML CARTRIDGE SQ SCH ×2 (09:38→21:29)
[2017-03-17] MEDS: INSULIN NPH 1,000 UNITS/10 ML VIAL SQ SCH ×2 (09:40→21:31)
[2017-03-17] MEDS: INSULIN ASPART 300 UNIT/3 ML CARTRIDGE SQ PRN ×2 (11:43→17:00)
[2017-03-17] MEDS: TRAZODONE 50 MG TABLET PO SCH (21:26)
[2017-03-17] MEDS: ATORVASTATIN 40 MG TABLET PO SCH (21:26)
[2017-03-17] MEDS: INSULIN ASPART 300 UNIT/3 ML CARTRIDGE SQ SCH (21:33)
[2017-03-17 21:47] VITALS: BP 112/54
[2017-03-18] MEDS: PANTOPRAZOLE SODIUM 40 MG TABLET.DR PO SCH (06:38)
[2017-03-18] MEDS: BLOOD SUGAR DIAGNOSTIC 1 EACH STRIP VI SCH ×4 (06:44→20:47)
[2017-03-18] MEDS: ALBUTEROL SULFATE 1.25 MG/3 ML NEBU IH SCH ×4 (07:27→20:27)
[2017-03-18] MEDS: IPRATROPIUM BROMIDE 0.5 MG/2.5 ML NEBU NEB SCH ×4 (07:28→20:27)
[2017-03-18] MEDS: INSULIN LISPRO 1000 UNITS/10 ML VIAL(HUMALOG) SQ SCH (07:30)
[2017-03-18 07:41] VITALS: BP 114/57
[2017-03-18] MEDS: BUMETANIDE 1 MG TABLET PO SCH (08:29)
[2017-03-18] MEDS: ISOSORBIDE MONONITRATE 60 MG TAB.SR.24H PO SCH (08:29)
[2017-03-18] MEDS: BENAZEPRIL HCL 10 MG TABLET PO SCH (08:30)
[2017-03-18] MEDS: CLOPIDOGREL 75 MG TABLET PO SCH (08:31)
[2017-03-18] MEDS: PAROXETINE HCL 10 MG TABLET PO SCH (08:31)
[2017-03-18] MEDS: METOPROLOL SUCCINATE XL 50 MG TAB.SR.24H PO SCH (08:31)
[2017-03-18] MEDS: FLUTICASONE PROP NASAL SPRAY 16 GM BOTTLE NS SCH (08:33)
[2017-03-18] MEDS: BRIMONIDINE 0.2% OPHT DROP 10 ML BOTTLE EACHEYE SCH ×2 (08:42→16:51)
[2017-03-18] MEDS: SPIRONOLACTONE 25 MG TABLET PO SCH ×2 (09:37→16:51)
[2017-03-18] MEDS: ARIPIPRAZOLE 10 MG TABLET PO SCH (09:38)
[2017-03-18] MEDS: PATIENT MAY USE OWN MED- MD OK EACHEYE SCH ×2 (09:39→16:51)
[2017-03-18] MEDS: INSULIN NPH 1,000 UNITS/10 ML VIAL SQ SCH ×2 (09:44→20:46)
[2017-03-18] MEDS: INSULIN DETEMIR 300 UNIT/3 ML CARTRIDGE SQ SCH ×2 (09:46→20:45)
[2017-03-18] MEDS: INSULIN ASPART 300 UNIT/3 ML CARTRIDGE SQ PRN ×2 (11:43→17:17)
[2017-03-18] MEDS: TRAZODONE 50 MG TABLET PO SCH (20:35)
[2017-03-18] MEDS: ATORVASTATIN 40 MG TABLET PO SCH (20:35)
[2017-03-18] MEDS: INSULIN ASPART 300 UNIT/3 ML CARTRIDGE SQ SCH (20:47)
[2017-03-18 21:04] VITALS: BP 121/54
[2017-03-19] MEDS: PANTOPRAZOLE SODIUM 40 MG TABLET.DR PO SCH (06:30)
[2017-03-19] MEDS: BLOOD SUGAR DIAGNOSTIC 1 EACH STRIP VI SCH ×4 (06:31→20:46)
[2017-03-19] MEDS: ALBUTEROL SULFATE 1.25 MG/3 ML NEBU IH SCH ×4 (07:25→20:12)
[2017-03-19] MEDS: IPRATROPIUM BROMIDE 0.5 MG/2.5 ML NEBU NEB SCH ×4 (07:25→20:11)
[2017-03-19] MEDS: INSULIN LISPRO 1000 UNITS/10 ML VIAL(HUMALOG) SQ SCH (08:30)
[2017-03-19] MEDS: INSULIN DETEMIR 300 UNIT/3 ML CARTRIDGE SQ SCH ×2 (08:31→20:37)
[2017-03-19] MEDS: INSULIN NPH 1,000 UNITS/10 ML VIAL SQ SCH ×2 (08:33→20:39)
[2017-03-19] MEDS: ARIPIPRAZOLE 10 MG TABLET PO SCH (08:34)
[2017-03-19] MEDS: ISOSORBIDE MONONITRATE 60 MG TAB.SR.24H PO SCH (08:36)
[2017-03-19] MEDS: SPIRONOLACTONE 25 MG TABLET PO SCH ×2 (08:37→17:21)
[2017-03-19] MEDS: PAROXETINE HCL 10 MG TABLET PO SCH (08:37)
[2017-03-19] MEDS: BUMETANIDE 1 MG TABLET PO SCH (08:37)
[2017-03-19] MEDS: METOPROLOL SUCCINATE XL 50 MG TAB.SR.24H PO SCH (08:37)
[2017-03-19] MEDS: CLOPIDOGREL 75 MG TABLET PO SCH (08:37)
[2017-03-19] MEDS: BRIMONIDINE 0.2% OPHT DROP 10 ML BOTTLE EACHEYE SCH ×2 (08:38→17:21)
[2017-03-19] MEDS: PATIENT MAY USE OWN MED- MD OK EACHEYE SCH ×2 (08:38→17:25)
[2017-03-19] MEDS: BENAZEPRIL HCL 10 MG TABLET PO SCH (08:38)
[2017-03-19] MEDS: FLUTICASONE PROP NASAL SPRAY 16 GM BOTTLE NS SCH (08:39)
[2017-03-19 08:54] VITALS: BP 148/59
[2017-03-19] MEDS: INSULIN ASPART 300 UNIT/3 ML CARTRIDGE SQ PRN (17:19)
[2017-03-19 19:40] VITALS: BP 140/60
[2017-03-19] MEDS: ATORVASTATIN 40 MG TABLET PO SCH (20:31)
[2017-03-19] MEDS: TRAZODONE 50 MG TABLET PO SCH (20:31)
[2017-03-19] MEDS: INSULIN ASPART 300 UNIT/3 ML CARTRIDGE SQ SCH (20:40)
[2017-03-20] MEDS: BLOOD SUGAR DIAGNOSTIC 1 EACH STRIP VI SCH ×4 (06:31→20:30)
[2017-03-20] MEDS: PANTOPRAZOLE SODIUM 40 MG TABLET.DR PO SCH (06:32)
[2017-03-20] MEDS: INSULIN LISPRO 1000 UNITS/10 ML VIAL(HUMALOG) SQ SCH (06:34)
[2017-03-20] MEDS: ALBUTEROL SULFATE 1.25 MG/3 ML NEBU IH SCH ×4 (08:11→20:02)
[2017-03-20] MEDS: IPRATROPIUM BROMIDE 0.5 MG/2.5 ML NEBU NEB SCH ×4 (08:11→20:02)
[2017-03-20 08:18] VITALS: BP 132/63
[2017-03-20 08:25] LABS: CARBON DIOXIDE 35 mmol/L (21-32); CHLORIDE 101 mmol/L (98-107); CREATININE 1.4 mg/dL (0.6-1.3); GLUCOSE 103 mg/dL (74-106); UREA NITROGEN, BLOOD 45 mg/dL (7-18)
[2017-03-20] MEDS: BRIMONIDINE 0.2% OPHT DROP 10 ML BOTTLE EACHEYE SCH ×2 (08:31→16:45)
[2017-03-20] MEDS: PATIENT MAY USE OWN MED- MD OK EACHEYE SCH ×2 (08:32→16:44)
[2017-03-20] MEDS: ARIPIPRAZOLE 10 MG TABLET PO SCH (08:33)
[2017-03-20] MEDS: FLUTICASONE PROP NASAL SPRAY 16 GM BOTTLE NS SCH (08:33)
[2017-03-20] MEDS: BUMETANIDE 1 MG TABLET PO SCH (08:34)
[2017-03-20] MEDS: SPIRONOLACTONE 25 MG TABLET PO SCH ×2 (08:34→16:44)
[2017-03-20] MEDS: PAROXETINE HCL 10 MG TABLET PO SCH (08:35)
[2017-03-20] MEDS: CLOPIDOGREL 75 MG TABLET PO SCH (08:35)
[2017-03-20] MEDS: BENAZEPRIL HCL 10 MG TABLET PO SCH (08:35)
[2017-03-20] MEDS: ISOSORBIDE MONONITRATE 60 MG TAB.SR.24H PO SCH (08:35)
[2017-03-20] MEDS: METOPROLOL SUCCINATE XL 50 MG TAB.SR.24H PO SCH (08:36)
[2017-03-20] MEDS: INSULIN DETEMIR 300 UNIT/3 ML CARTRIDGE SQ SCH ×2 (08:42→20:42)
[2017-03-20] MEDS: INSULIN NPH 1,000 UNITS/10 ML VIAL SQ SCH ×2 (09:03→20:42)
[2017-03-20] MEDS: INSULIN ASPART 300 UNIT/3 ML CARTRIDGE SQ PRN ×2 (12:01→16:44)
[2017-03-20 19:45] VITALS: BP 137/62
[2017-03-20] MEDS: ATORVASTATIN 40 MG TABLET PO SCH (20:30)
[2017-03-20] MEDS: TRAZODONE 50 MG TABLET PO SCH (20:31)
[2017-03-20] MEDS: INSULIN ASPART 300 UNIT/3 ML CARTRIDGE SQ SCH (20:43)
[2017-03-21] MEDS: PANTOPRAZOLE SODIUM 40 MG TABLET.DR PO SCH (06:30)
[2017-03-21] MEDS: BLOOD SUGAR DIAGNOSTIC 1 EACH STRIP VI SCH ×3 (06:30→16:30)
[2017-03-21] MEDS: ALBUTEROL SULFATE 1.25 MG/3 ML NEBU IH SCH ×3 (07:12→15:30)
[2017-03-21] MEDS: IPRATROPIUM BROMIDE 0.5 MG/2.5 ML NEBU NEB SCH ×3 (07:12→15:30)
[2017-03-21 07:20] VITALS: BP 138/62
[2017-03-21] MEDS: BUMETANIDE 1 MG TABLET PO SCH ×2 (09:03→09:09)
[2017-03-21] MEDS: FLUTICASONE PROP NASAL SPRAY 16 GM BOTTLE NS SCH ×2 (09:03→09:09)
[2017-03-21] MEDS: CLOPIDOGREL 75 MG TABLET PO SCH (09:10)
[2017-03-21] MEDS: ARIPIPRAZOLE 10 MG TABLET PO SCH (09:11)
[2017-03-21] MEDS: ISOSORBIDE MONONITRATE 60 MG TAB.SR.24H PO SCH (09:11)
[2017-03-21] MEDS: BENAZEPRIL HCL 10 MG TABLET PO SCH (09:12)
[2017-03-21] MEDS: METOPROLOL SUCCINATE XL 50 MG TAB.SR.24H PO SCH (09:12)
[2017-03-21] MEDS: PAROXETINE HCL 10 MG TABLET PO SCH (09:12)
[2017-03-21] MEDS: PATIENT MAY USE OWN MED- MD OK EACHEYE SCH ×2 (09:13→16:17)
[2017-03-21] MEDS: BRIMONIDINE 0.2% OPHT DROP 10 ML BOTTLE EACHEYE SCH ×2 (09:13→16:18)
[2017-03-21] MEDS: INSULIN NPH 1,000 UNITS/10 ML VIAL SQ SCH (09:17)
[2017-03-21] MEDS: INSULIN LISPRO 1000 UNITS/10 ML VIAL(HUMALOG) SQ SCH (09:18)
[2017-03-21] MEDS: INSULIN DETEMIR 300 UNIT/3 ML CARTRIDGE SQ SCH (09:20)
[2017-03-21] MEDS: SPIRONOLACTONE 25 MG TABLET PO SCH ×2 (09:21→16:17)
[2017-03-21] MEDS: INSULIN ASPART 300 UNIT/3 ML CARTRIDGE SQ PRN ×2 (11:07→16:31)
[2017-03-21 16:34] VITALS: BP 122/59
== END 2017-03-21 17:40 | disposition home health service (06) | DRG 291 ==
PROVIDERS: ADMIT Physical Medicine & Rehabilitation Pain Medicine; ATTEND Physical Medicine & Rehabilitation Pain Medicine
DX: I13.0 Hypertensive heart and chronic kidney disease with heart failure and stage 1 through stage 4 chronic kidney disease, or unspecified chronic kidney disease (principal); I50.43 Acute on chronic combined systolic (congestive) and diastolic (congestive) heart failure; I95.9 Hypotension, unspecified; E11.22 Type 2 diabetes mellitus with diabetic chronic kidney disease; E11.649 Type 2 diabetes mellitus with hypoglycemia without coma; E66.01 Morbid (severe) obesity due to excess calories; D63.8 Anemia in other chronic diseases classified elsewhere; J44.9 Chronic obstructive pulmonary disease, unspecified; Z68.43 Body mass index [BMI] 50.0-59.9, adult; N18.3 Chronic kidney disease, stage 3 (moderate); R53.81 Other malaise; E03.9 Hypothyroidism, unspecified; G47.33 Obstructive sleep apnea (adult) (pediatric); I25.10 Atherosclerotic heart disease of native coronary artery without angina pectoris; N18.9 Chronic kidney disease, unspecified; Z82.49 Family history of ischemic heart disease and other diseases of the circulatory system; F32.9 Major depressive disorder, single episode, unspecified; F41.9 Anxiety disorder, unspecified; Z79.4 Long term (current) use of insulin; Z98.61 Coronary angioplasty status
CPT/HCPCS: 36415; 83735; 84100; 85025; 92526; 92610; 94640; 94664; 97110; 97112; 97116; 97530; 97535; J1815; J3535; J3590